=== PATIENT | female | born 2000 | race Caucasian/White ===

== ENCOUNTER → 2023-03-11 | Outpatient (CLI) | payer OTHER, SELFPAY ==
--- NOTE | 2023-03-11 08:27 | US_ITS ---
STUDY: FIRST TRIMESTER OBSTETRICAL ULTRASOUND REASON FOR EXAM: Female, 23 years old viability LMP: January 25, 2023. TECHNIQUE: Transvaginal TECHNICAL QUALITY: Adequate. PRIOR ULTRASOUND: None. FINDINGS: There is visualization of a single gestational sac in a normal intrauterine position. The mean sac diameter (MSD) measures 1.3 cm, indicating an estimated gestational age (EGA) of 6 weeks, 1 days. The gestational sac shape is within normal limits. There is a visualized yolk sac. The yolk sac measures 3.5 mm. The placenta is non-visualized. There is visualization of a live embryo. The crown-rump length (CRL) measures 3.2 mm, indicating an estimated gestational age (EGA) of 6 weeks, 1 days. There is demonstrated cardiac activity with a heart rate of 115 bpm. The estimated gestation age (EGA) by LMP is 6 weeks, 3 days. The estimated date of delivery (BRODIE) by LMP is November 01, 2023. The estimated gestation age (EGA) by US is 6 weeks, 1 days. The estimated date of delivery (BRODIE) by US is November 03, 2023. The uterus measures 8.9 cm x 5.7 cm x 4.9 cm. There is no demonstrated uterine fibroid. The cervix is closed. The right ovary measures 2.4 cm x 2.2 cm x 1.5 cm. There is no right ovarian cyst. There is no visualized right adnexal mass or complex lesion. The left ovary measures 1.2 cm x 1.4 cm x 1.9 cm. There is no left ovarian cyst. There is no visualized left adnexal mass or complex lesion. There is no fluid in the cul de sac. US/Transvaginal w/Preg US IMPRESSION: Single live intrauterine gestation with a mean gestational age of 6 weeks and 1 day. Electronically Signed: Vu Benjamin MD at 14:58 EST ,
[2023-03-11 10:34] LABS: Progesterone Level 25.47 ng/mL (See Comment)
[2023-03-11 11:07] LABS: hCG Titer Quant., Serum 11178 mIU/mL (1-3)
== END | disposition home or self-care (01) ==
PROVIDERS: Nurse Practitioner Women's Health; Referring Provider Registered Nurse; Visit Provider Registered Nurse
DX: O09.291 Supervision of pregnancy with other poor reproductive or obstetric history, first trimester (principal); Z3A.01 Less than 8 weeks gestation of pregnancy
CPT/HCPCS: 36415; 76817; 84144; 84702

== ENCOUNTER → 2023-03-28 | Outpatient (CLI) | payer OTHER, SELFPAY ==
[2023-03-28 13:57] LABS: Absolute Lymphocyte Count 1.81 X10^3/uL (0.83-4.51); Absolute Neutrophil Count 8.3 X10^3/uL (2.0-7.7); Basophil# 0.05 X10^3/uL; Basophil% 0.5 % (0-1); Eosinophil# 0.06 X10^3/uL; Eosinophils% 0.6 % (0-5); Hematocrit 39.6 % (37-47); Hemoglobin 13.4 g/dL (12.0-15.0); Lymphocyte # 1.81 X10^3/ul (0.83-4.51); Lymphocyte % 16.9 % (19-41); Mean Corp Hgb Conc 33.8 g/dL (32-36); Mean Corpuscular Hgb 28.7 pg (27.0-32.0); Mean Corpuscular Volume 84.8 fL (81-99); Mean Platelet Vol. 10.4 fl (6.2-12.0); Monocyte# 0.43 X10^3/uL; NRBC Flagged by Analyzer 0 % (0-5); Neutrophil # 8.29 X10^3/uL (2.7-7.7); Neutrophil % 77.6 % (47-70); Platelet Count 234 K/mm3 (150-450); RBC Distribution Width CV 11.8 % (11.6-14.6); RBC Distribution Width SD 36.1 fl (35.1-43.9); Red Blood Count 4.67 M/mm3 (4.2-5.4); White Blood Count 10.7 K/mm3 (4.4-11.0)
[2023-03-28 14:16] LABS: NATERA MAILED SPECIMEN
[2023-03-28 14:59] LABS: hCG Titer Quant., Serum 26855 mIU/mL (1-3)
[2023-04-02 10:09] LABS: Anti-Cardiolipin Ab, IgA, Qn < 9 APL U/mL (0-11); Anti-Cardiolipin Ab, IgG, Qn < 9 GPL U/mL (0-14); Anti-Cardiolipin Ab, IgM, Qn < 9 MPL U/mL (0-12); Beta-2-Glycoprotein I IgA <9 (0-25); Beta-2-Glycoprotein I IgG 20 (0-20); Beta-2-Glycoprotein I IgM <9 (0-32); Dilute Prothrombin Time (dPT) 47.2 sec (0.0-47.6); Dilute Russell Viper Venom 35.5 sec (0.0-47.0); Interpretation Comment: (.); PTT-LA 35.6 sec (0.0-43.5); dPT Confirm Ratio 1.01 Ratio (0.00-1.34)
== END | disposition home or self-care (01) ==
LOC: LAB 12:52
PROVIDERS: PCP Physician Assistant; Referring Provider Registered Nurse; Visit Provider Registered Nurse
DX: N96 Recurrent pregnancy loss (principal)
CPT/HCPCS: 36415; 84702; 85025; 86146; 86147; 86850; 86900; 86901

== ENCOUNTER 2023-04-01 14:09 | Day surgery (SDC) | payer SELFPAY, OTHER ==
--- NOTE | 2023-04-01 10:48 | PCM.HP.BLA ---
History and Physical Date of Admission: 04/01/23 Vital Signs 03/28/2311:22 Height 5 ft 4 in Weight: 140 lb BMI 24.0 BP 118/84 H Intake Visit Reasons: New OB, LMP Chief Complaint: NOB Deputy Fire Chief Required: No Is patient in pain?: No Allergies No Known Allergies Allergy (Unverified 03/28/23 11:21) Medications progesterone micronized 200 mg capsule 400 mg (2 x 200 mg) vaginal .2xday 30 days #120 caps 03/12/23 [Rx Confirmed 03/18/23] misoprostol 200 mcg tablet (Cytotec) 200 mcg PO QPCHS #4 tabs 03/28/23 [Rx Confirmed 03/28/23] Last Menstrual Period: 01/25/23 Zika: Zika virus screening: Negative : No PFSH PFSH Medical History History of miscarriage, currently Social History adopted: No household members: spouse current occupational status: employed current occupation: [employer] current occupational exposures/hazards: No pets and animals: Yes pets and animals: dog(s) history of recent travel: Yes (- October) out of state: No out of country: Yes sexually active: Yes Smoking Status: Never smoker alcohol intake: never substance use type: does not use well-balanced diet: about half the time caffeine: No eating out: rarely or never during the past year weight has: remained stable what type of physical activity do you participate in: none bradley/samaritan: Confucianist seatbelt use: sometimes do you feel safe at home: Yes additional social history: Frandy- Pepe History 2 Elective abortions Hx Para 0 Spontaneous abortions 1 Hx # Term Pregnancies Ectopic pregnancies Hx # Pregnancies Multiple births # of living children 0 Past Pregnancies Del. Date Name GA/Weeks Outcome Route Bth Weight Gen Labor Lgth Anesthesia Del Locatn Provider FOB Unknown October 2022 miscarriage 9 wks HPI New OB, LMP Details: ALE SOLIS is a 23 year old who presents for New OB visit. OB Visit BRODIE Calculator Estimated Delivery Date Method Current WG Current Estimate 11/01/23 LMP (Certain) 8w 6d Comments: HIV: Urine Culture: Sequential Screen: NIPT Screen: Estimated Due Date: 11/01/23 Initial Weight: Not Recorded Date <del>?</del> EGA Weight BP Urine Prot <del>?</del> Glucose FHR FuHt Pres Dilation <del>?</del> Effaced St Visit Note 03/28/23<del>?</del> 8w 6d 140 lb 118/84 <del>?</del> <del>?</del> no heart tones, medical and surgical options reviewed by SM and self. pt opted to medication management. cytotec sent to pharmacy. f/u ultrasound in 1 week. understands surgical intervention may still be required. Menstrual History Last Menstrual Period: 01/25/23 Antepartum Record Genetic Screening: Congenital Heart Defect: Other, Neural Tube Defect: Other, Hemoglobinopathy Or Carrier: Other, Cystic Fibrosis: Other, Chromosome Abnormality: Other, Joshua-Sachs: Other, Hemophilia: Other, Intellectual Disability/Autism: Other, Recurrent Loss/Stillbirth: Other, Other Structural Defect: Other, Other Genetic Disease: Other and Maternal Metabolic Disorder: Other Infection History: Live with someone with TB or Exposed to TB: No, Patient or Partner has history of Genital Herpes: No, Rash or Viral illness since last mentrual period: No, Prior GBS-Infected child: No, History of STD: No, HIV Infection: No, History of Hepatitis: No, Recent travel outside of [place]: Yes ([place]), Concern for hepatitis exposure: No, Varicella immune: Yes (IMMUNE) and Covid Vaccinated: No ROS Const Reports system reviewed and no additional complaints, except as documented Card Reports system reviewed and no additional complaints, except as documented Resp Reports system reviewed and no additional complaints, except as documented GI Reports system reviewed and no additional complaints, except as documented, Reports nausea Reports system reviewed and no additional complaints, except as documented Musc Reports system reviewed and no additional complaints, except as documented all other systems reviewed and negative Exam Const General: cooperative and comfortable Neck Neck: normal visual inspection Thyroid: thyroid normal Chest Chest palpation & inspection: normal inspection of the chest Breast inspection: normal inspection of the breasts and normal inspection of the axillae Resp Effort & Inspection: normal respiratory effort, able to speak in complete sentences and symmetric chest movement GI Inspection: normal to inspection Palpation: soft External Female Exam: normal external appearance and normal appearance of the urethra Urethra: normal appearance of the urethra Speculum Exam - Vagina: normal appearance of the vagina Speculum Exam - Cervix: normal appearance of the cervix Bimanual Exam- Vagina & Uterus: uterine size normal (consistent with dates of , no FHR) OB/External & Speculum: no bleeding Skin General: rashes and/or lesions noted Neuro General: patient alert, patient awake and patient oriented x3 Psych Appearance: grossly normal and well kempt Coding Level of Care Code Off vis,est,level 4 Diagnoses Missed with demise before 20 completed weeks of gestation O02.1 History of recurrent miscarriages N96 Assessment and Plan Assessment and Plan (1) Missed with demise before 20 completed weeks of gestation: Status: Acute Comment: medication management after r/b/a discussed. bleeding parameters reviewed f/u ultrasound and visit in 1 week (2) History of recurrent miscarriages: Status: Acute Comment: APL screening genetic carrier screening if both negative is considering hsg to rule out uterine abnormalities. would use progesterone with positive test. recommend waiting at least 3 months prior to conceiving. Orders: patient decided now to proceed with suction d and c. After discussing the patient's diagnosis and treatment plan options, patient wishes to proceed with surgical management. I have discussed with the patient the risks, benefits, and alternatives of the procedure which include but are not limited to risks of anesthesia, bleeding, infection, possible damage to bowel, bladder, or surrounding vasculature which could lead to additional surgery to evaluate any complications. Patient agrees to procedure and wishes to proceed. ACOG/uptodate references given for additional information regarding procedure.
[2023-04-01 14:56] VITALS: BP 126/81; PULSE 90; RESP 16; TEMP 36.2; O2SAT 100; BMI 23.8
[2023-04-01] MEDS: Lactated Ringers 1,000 ML 15 ML IV (15:00)
[2023-04-01] MEDS: Doxycycline 100 MG CAPSULE PO (15:00)
[2023-04-01 15:10] LABS: Hematocrit 40.2 % (37-47); Mean Corp Hgb Conc 34.8 g/dL (32-36); Mean Corpuscular Hgb 29.2 pg (27.0-32.0); Mean Corpuscular Volume 83.8 fL (81-99); Mean Platelet Vol. 10.2 fl (6.2-12.0); Platelet Count 246 K/mm3 (150-450); RBC Distribution Width CV 11.9 % (11.6-14.6); White Blood Count 9.2 K/mm3 (4.4-11.0)
--- NOTE | 2023-04-01 15:50 | POC_PTH ---
PATIENT: ALE SOLIS LOC: [facility] [place] U#:[id number] AGE/SX: 23/F ROOM: RE04/01/[address]: Dr. Lani Doherty MD : 2000 BED: DIS: 04/01/2023 SPEC #: [id number] RECD: 04/02/23 08:01 STATUS: NIECY DEBBIE #: [id number] EMMA: 04/01/23 15:[address]: Lani Doherty DEPT: SURGICAL PATHOLOGY RECD BY: Shefali Lara ENTERED: 04/02/23 08:01 SP TYPE: PROD CONC OTHR DR: YUDI Nath Tissues: Product of conception, NOS Procedures: Surgery Specimen Level IV HEADER OPERATION: Suction dilation and curettage PRE-OP DIAGNOSIS: Missed with demise before 20 completed weeks of gestation TISSUE SUBMITTED: Products of conception MICROSCOPIC DIAGNOSIS Products of conception, dilation and curettage: [place]id[place], gestational endometrium and immature chorionic villi (products of conception), clinically missed with demise. See comment. MARCO A:jorden 04/03/2023 COMMENT Focal minimal hydropic are noted. Significant trophoblastic hyperplasia is not seen. Correlation with clinical findings and appropriate follow up are necessary. MICROSCOPIC DESCRIPTION Slides are reviewed. GROSS DESCRIPTION Received in fixative is one container labeled with the patient's name and designated products of conception. The specimen consists of multiple irregular fragments of pitts tissue that in aggregate measure 7.0 x 5.0 x 0.3 cm. parts are not grossly recognized. Cosmetician portions are submitted in one cassette. / AM:jorden 04/02/2023 TC:5 CPT: 71475
[2023-04-01] MEDS: Lidocaine 1% (20 ml mdv) 20 ML Vial (16:48)
--- NOTE | 2023-04-01 17:02 | PCM.OPRPT ---
Problems Associated Problem List Diagnoses (1) History of recurrent miscarriages: (2) Missed with demise before 20 completed weeks of gestation: (3) H/O dilation and curettage: Report of Operation Date of Procedure: 04/01/23 Pre-Operative Diagnosis: see problem list Post-Operative Diagnosis: same Surgery/Procedure Performed:: Suction dilation and curettage Description of Surgical Findings:: no FHT present, Nonviable 8 weeks Surgeon: Lani Doherty parks recreation coordinator: None Type of Anesthesia: Local MAC Special Medications: none Specimen's removed: POC Drains: none Estimated Blood Loss (mL): 50 Fluids Replaced: crystalloid Description of Procedure: Patient was taken to the operating room and placed under MAC local anesthesia. She was prepped and draped in the normal sterile fashion the dorsal lithotomy position. Bladder was drained of clear urine and anterior lip of the cervix was grasped and the uterus sounded to 8 cm. Cervix was progressively dilated to allow passage of a 8mm suction curette. Progressive passes were made removing the retained products of conception without complication. Sharp curettage confirmed complete removal of the retained products. All instruments were removed from the vagina and excellent hemostasis was noted and the patient was taken to recovery in stable condition. Grafts/Implants Used: none Complications none Admit VTE Documentation VTE Present on Admission: No VTE Mechan Device Prophylaxis: SCD's Procedures Urinary/Genital 52xxx-59xxx: [id number] Trmt of incomplete Ab, any TM
[2023-04-01 17:05] VITALS: BP 101/61; BP 126/81; PULSE 78; RESP 16; TEMP 36.8; O2SAT 98
--- NOTE | 2023-04-01 17:09 | PCM.DC ---
Discharge Instructions Diet Discharge Diet: No restrictions Activity Discharge Activity: Return to Normal Activity, May Shower and May Take a Tub Bath (after 1 week) May resume sexual activity in: 1-2 weeks Weight Bearing Status: Weight bearing as tolerated Lifting Restrictions: none Dressing / Incision Call your doctor if you observe: Fever of 101 or Higher, Using more than 1 pad per hour, Shortness of breath and Uncontrolled pain Follow Up Care Please Follow Up With: Lani Doherty MD When: Call [phone] to schedule appointment. Test Results: Test results from this visit will be discussed in further detail at your follow-up appointment, if applicable. Discharge Plan Admission Attending Provider: Lani Doherty Primary Care Provider: Jessica Grossman Discharge Orders/Prescriptions Prescriptions: No Action NK Other Ambulatory Orders: CBC-Complete Blood Cnt No Diff (Routine) Timeframe: [id number] Facility: [facility] - Location: Laboratory Ordered By: Dr. Lani Doherty Type & Screen - PAT ONLY (Routine) Timeframe: [id number] Facility: [facility] - Location: Laboratory Ordered By: Dr. Lani Doherty Referrals / Follow Up: Jessica Grossman PA [Primary Care Provider] - Disposition Disposition (needs filled in before D/C Order can be placed): Home, Self Care
[2023-04-01 17:10] VITALS: BP 103/71; BP 126/81; PULSE 94; RESP 16; O2SAT 99
[2023-04-01 17:14] VITALS: BP 108/71; BP 126/81; PULSE 96; RESP 16; O2SAT 99
[2023-04-01 17:20] VITALS: BP 114/71; BP 126/81; PULSE 95; RESP 16; TEMP 37.2; O2SAT 100
[2023-04-01 18:18] VITALS: BP 126/81
== END 2023-04-01 18:18 | disposition home or self-care (01) ==
LOC: SDC 14:11 → AC 14:12
PROVIDERS: PCP Physician Assistant; Referring Provider Obstetrics & Gynecology; Visit Provider Obstetrics & Gynecology
PROC: (CPT 59820; principal; 2023-04-01 15:35)
DX: O02.1 Missed abortion (principal)
CPT/HCPCS: 59820; 01965; 85027; 86850; 86900; 86901; 88305; J7120; J2405

== ENCOUNTER → 2023-04-11 | Outpatient (CLI) | payer OTHER, SELFPAY ==
[2023-04-11 16:10] LABS: Hematocrit 37.3 % (37-47); Hemoglobin 12.5 g/dL (12.0-15.0); Mean Corp Hgb Conc 33.5 g/dL (32-36); Mean Corpuscular Hgb 28.6 pg (27.0-32.0); Mean Corpuscular Volume 85.4 fL (81-99); Mean Platelet Vol. 10.3 fl (6.2-12.0); Platelet Count 271 K/mm3 (150-450); RBC Distribution Width CV 11.9 % (11.6-14.6); RBC Distribution Width SD 36.9 fl (35.1-43.9); Red Blood Count 4.37 M/mm3 (4.2-5.4); White Blood Count 6.9 K/mm3 (4.4-11.0)
[2023-04-11 16:43] LABS: hCG Titer Quant., Serum 250 mIU/mL (1-3)
== END | disposition home or self-care (01) ==
LOC: LAB 15:35
PROVIDERS: PCP Physician Assistant; Referring Provider Obstetrics & Gynecology; Visit Provider Obstetrics & Gynecology
DX: Z34.90 Encounter for supervision of normal pregnancy, unspecified, unspecified trimester (principal)
CPT/HCPCS: 36415; 84702; 85027

== ENCOUNTER → 2023-09-05 | Outpatient (CLI) | payer OTHER, SELFPAY ==
[2023-09-08 20:08] LABS: Chlamydia By Nucleic Acid AMP Negative (Negative); Gonococcus By Nucleic Acid AMP Negative (Negative)
[2023-09-10 19:52] LABS: HPV Reflexed? NOT INDICATED
== END | disposition home or self-care (01) ==
LOC: LABSPEC 16:47
PROVIDERS: PCP Physician Assistant; Referring Provider Registered Nurse; Visit Provider Registered Nurse
DX: O09.90 Supervision of high risk pregnancy, unspecified, unspecified trimester (principal); Z3A.00 Weeks of gestation of pregnancy not specified
CPT/HCPCS: 87086; 87088; 87491; 87591; 88175; G0145

== ENCOUNTER → 2023-10-01 | Outpatient (CLI) | payer OTHER, SELFPAY ==
[2023-10-01 12:30] LABS: Absolute Lymphocyte Count 1.39 X10^3/uL (0.83-4.51); Absolute Neutrophil Count 9.7 X10^3/uL (2.0-7.7); Basophil# 0.03 X10^3/uL; Basophil% 0.3 % (0-1); Eosinophil# 0.05 X10^3/uL; Eosinophils% 0.4 % (0-5); Hematocrit 37.7 % (37-47); Hemoglobin 13.3 g/dL (12.0-15.0); Lymphocyte # 1.39 X10^3/ul (0.83-4.51); Mean Corp Hgb Conc 35.3 g/dL (32-36); Mean Corpuscular Hgb 29.9 pg (27.0-32.0); Mean Corpuscular Volume 84.7 fL (81-99); Mean Platelet Vol. 10.3 fl (6.2-12.0); Monocyte# 0.41 X10^3/uL; Monocyte% 3.5 % (0-10); NRBC Flagged by Analyzer 0 % (0-5); Neutrophil # 9.66 X10^3/uL (2.7-7.7); Neutrophil % 83.5 % (47-70); Platelet Count 225 K/mm3 (150-450); RBC Distribution Width CV 13.2 % (11.6-14.6); Red Blood Count 4.45 M/mm3 (4.2-5.4); White Blood Count 11.6 K/mm3 (4.4-11.0)
[2023-10-01 13:59] LABS: HIV - WCH Non-Reactive (Nonreactive); Hepatitis B Surface Antigen Non-Reactive (Nonreactive); Hepatitis C Antibody Non-Reactive (Nonreactive); Rubella IgG Non-Reactive (Nonreactive); Syphilis Antibodies Non-reactive
== END | disposition home or self-care (01) ==
LOC: LAB 11:38
PROVIDERS: Registered Nurse; PCP Physician Assistant; Referring Provider Obstetrics & Gynecology; Visit Provider Obstetrics & Gynecology
DX: O09.90 Supervision of high risk pregnancy, unspecified, unspecified trimester (principal); Z3A.00 Weeks of gestation of pregnancy not specified
CPT/HCPCS: 36415; 85025; 86703; 86762; 86780; 86803; 86850; 86900; 86901; 87340

== ENCOUNTER → 2023-11-24 | Outpatient (CLI) | payer SELFPAY, OTHER ==
--- NOTE | 2023-11-24 12:05 | US_ITS ---
STUDY: SECOND AND THIRD TRIMESTER OBSTETRICAL ULTRASOUND REASON FOR EXAM: Female, 23 years old anatomy-TWINS -- Please determine chorionicity LMP: TECHNIQUE: TECHNICAL QUALITY: Adequate. PRIOR ULTRASOUND: None. FINDINGS: There is a single intrauterine fetus. The fetus is in a cephalic presentation. There is demonstrated cardiac activity with a heart rate of bpm. There is a normal amniotic fluid volume. The largest amniotic fluid pocket measures cm. The amniotic fluid index (OTIS) is cm. The placenta is There are Grade 0 placental changes. The cervix measures in length. The bilateral adnexal regions are normal. BIOMETRY: BPD: : weeks, days HC: : weeks, days AC: : weeks, days FL: : weeks, days CI: FL/BPD: FL/HC: FL/AC: HC/AC: age by current US: weeks, days. BRODIE by current US: . Estimated weight: grams, +/- grams, %. age by prior US: weeks, days. BRODIE by prior US: . Age by LMP: weeks, days. BRODIE by LMP: . ANATOMY: Gender: Cranium: Normal lateral ventricles. Normal choroid plexus. Normal cerebellum. Normal cisterna magna. Normal face, nose and lips. Chest: Normal 4-chamber heart. Abdomen/Pelvis: Normal diaphragm. Normal stomach. Normal abdominal wall. Normal cord insertion. Normal 3 vessel cord. Normal kidneys. Normal bladder. Spine: Normal cervical spine. Normal thoracic spine. Normal lumbar spine. Normal sacrum. Extremities: Normal bilateral upper extremities. Normal bilateral lower extremities. IMPRESSION: Electronically Signed: Vu Benjamin MD at 15:27 EDT , STUDY: SECOND AND THIRD TRIMESTER OBSTETRICAL ULTRASOUND - TWIN REASON FOR EXAM: Female, 23 years old. LMP: anatomy-TWINS -- Please determine chorionicity TECHNIQUE: Transabdominal TECHNICAL QUALITY: Adequate. COMPARISON: None. FINDINGS: There are two intrauterine fetuses. There is a single identified placenta, without a ?twin peak? sign, indicating a probable monochorionic . The amniotic membrane cannot be visualized. There is a normal amniotic fluid volume within each amniotic sac. The uterine wall is normal. There is a competent closed cervical os. The cervix measures 3.9 cm in length. The bilateral adnexal regions are normal. Fetus A demonstrates male external genitalia. Fetus A demonstrates cardiac activity with a heart rate of 157 bpm. Fetus ?A? is in a breech presentation. Fetus B demonstrates male external genitalia. Fetus B demonstrates cardiac activity with a heart rate of 150 bpm. Fetus B is in a cephalic presentation. FETUS A BIOMETRY: BPD: 4.7 cm: 20 weeks, 0 days HC: 17.6 on: 20 weeks, 0 days AC: 14.9 cm: 20 weeks, 1 days FL: 3.2 cm: 20 weeks, 0 days CI: 75.8% FL/BPD: 69.2% FL/HC: FL/AC: 21.7% HC/AC: 1. age by current US: 20 weeks, 1 days. BRODIE by current US: April 11, 2024. Estimated weight: 332 grams, +/- 50 grams, 27.6 %. Age by LMP: 20 weeks, 3 days. BRODIE by LMP: April 09, 2024. FETUS B BIOMETRY: BPD: 4.7 cm: 20 weeks, 1 days HC: 17.5 cm: 20 weeks, 0 days AC: 15.1 cm: 20 weeks, 2 days FL: 3.1 cm: 19 weeks, 4 days CI: 76.5% FL/BPD: 66.2% FL/HC: FL/AC: 20.5% HC/AC: 1. age by current US: 20 weeks, 0 days. BRODIE by current US: April 12, 2024. Estimated weight: 326 grams, +/- 49 grams, 24 %. Age by LMP: 20 weeks, 3 days. BRODIE by LMP: April 09, 2024. FETUS A ANATOMY: Cranium: Normal lateral ventricles. Normal choroid plexus. Normal cerebellum. Normal cisterna magna. Normal face, nose and lips. Chest: Normal 4-chamber heart. Abdomen/Pelvis: Normal diaphragm. Normal stomach. Normal abdominal wall. Normal cord insertion. Normal 3 vessel cord. Normal kidneys. Normal bladder. Spine: Normal cervical spine. Normal thoracic spine. Normal lumbar spine. Normal sacrum. Extremities: Normal bilateral upper extremities. Normal bilateral lower extremities. FETUS B ANATOMY: Cranium: Normal lateral ventricles. Normal choroid plexus. Normal cerebellum. Normal cisterna magna. Normal face, nose and lips. Chest: Normal 4-chamber heart. Abdomen/Pelvis: Normal diaphragm. Normal stomach. Normal abdominal wall. Normal cord insertion. Normal 3 vessel cord. Normal kidneys. Normal bladder. Spine: Normal cervical spine. Normal thoracic spine. Normal lumbar spine. Normal sacrum. Extremities: Normal bilateral upper extremities. Normal bilateral lower extremities. IMPRESSION: Twin gestation as described above. Electronically Signed: Vu Benjamin MD at 15:23 EDT , STUDY: FIRST TRIMESTER OBSTETRICAL ULTRASOUND REASON FOR EXAM: Female, 23 years old anatomy-TWINS --cervical length. TECHNIQUE: Transvaginal TECHNICAL QUALITY: Adequate. PRIOR ULTRASOUND: None. FINDINGS: Cervical length measures 3.9 cm. US/OB Anatomy w/ Transvaginal IMPRESSION: Cervical length measures 3.9 cm. Electronically Signed: Vu Benjamin MD at 15:27 EDT ,
== END | disposition home or self-care (01) ==
LOC: OPUS 12:04 → US 12:05
PROVIDERS: PCP Physician Assistant; Referring Provider Obstetrics & Gynecology; Visit Provider Obstetrics & Gynecology
DX: O30.009 Twin pregnancy, unspecified number of placenta and unspecified number of amniotic sacs, unspecified trimester (principal); Z3A.00 Weeks of gestation of pregnancy not specified
CPT/HCPCS: 76805; 76810; 76817

== ENCOUNTER → 2024-01-26 | Outpatient (CLI) | payer OTHER, SELFPAY ==
[2024-01-26 09:18] LABS: Absolute Lymphocyte Count 1.37 X10^3/uL (0.83-4.51); Absolute Neutrophil Count 8.6 X10^3/uL (2.0-7.7); Basophil# 0.03 X10^3/uL; Basophil% 0.3 % (0-1); Eosinophil# 0.05 X10^3/uL; Eosinophils% 0.5 % (0-5); Hematocrit 35.3 % (37-47); Hemoglobin 11.5 g/dL (12.0-15.0); Lymphocyte # 1.37 X10^3/ul (0.83-4.51); Mean Corp Hgb Conc 32.6 g/dL (32-36); Mean Corpuscular Hgb 28.5 pg (27.0-32.0); Mean Corpuscular Volume 87.6 fL (81-99); Mean Platelet Vol. 10.8 fl (6.2-12.0); Monocyte# 0.39 X10^3/uL; Monocyte% 3.7 % (0-10); NRBC Flagged by Analyzer 0 % (0-5); Neutrophil # 8.61 X10^3/uL (2.7-7.7); Neutrophil % 81.6 % (47-70); Platelet Count 179 K/mm3 (150-450); RBC Distribution Width CV 12.1 % (11.6-14.6); RBC Distribution Width SD 38.6 fl (35.1-43.9); Red Blood Count 4.03 M/mm3 (4.2-5.4); White Blood Count 10.6 K/mm3 (4.4-11.0)
[2024-01-26 09:42] LABS: Glucose Challenge Gest 1H 50g 163 mg/dL (70-140)
[2024-01-26 10:10] LABS: HIV - WCH Non-Reactive (Nonreactive); Syphilis Antibodies Non-reactive
== END | disposition home or self-care (01) ==
LOC: LAB 08:24
PROVIDERS: PCP Physician Assistant; Referring Provider Obstetrics & Gynecology; Visit Provider Obstetrics & Gynecology
DX: O09.90 Supervision of high risk pregnancy, unspecified, unspecified trimester (principal); Z3A.00 Weeks of gestation of pregnancy not specified
CPT/HCPCS: 36415; 82950; 85025; 86703; 86780; 86850; 86900; 86901

== ENCOUNTER → 2024-01-28 | Outpatient (CLI) | payer OTHER, SELFPAY ==
[2024-01-28 07:34] LABS: Bedside Glucose 85 mg/dL (74-106)
[2024-01-28 08:04] LABS: Glucose GTT-Gestation. Fasting 95 mg/dL (<105)
[2024-01-28 08:39] LABS: Glucose GTT-Gestational 1 Hr 215 mg/dL (<190)
[2024-01-28 11:09] LABS: Glucose GTT-Gestational 2 Hr 185 mg/dL (<165)
[2024-01-28 11:26] LABS: Glucose GTT-Gestational 3 Hr 129 L (<145)
== END | disposition home or self-care (01) ==
LOC: LAB 06:50
PROVIDERS: PCP Physician Assistant; Referring Provider Obstetrics & Gynecology; Visit Provider Obstetrics & Gynecology
DX: Z13.1 Encounter for screening for diabetes mellitus (principal)
CPT/HCPCS: 36415; 82951; 82952; 82962

== ENCOUNTER → 2024-02-16 | Outpatient (CLI) | payer SELFPAY, OTHER ==
--- NOTE | 2024-02-16 12:20 | US_ITS ---
INDICATION: weekly bpp -- Twins EXAMINATION: Ultrasound US Biophysical Profile W/O Nonst TECHNIQUE: Transabdominal pelvic ultrasound was performed. COMPARISON: No relevant prior comparison study available LMP: 07/04/2027 Beta-hCG: Unknown. Provided EGA: None. FINDINGS: age by LMP: 32 weeks and 3 days. BRODIE by LMP is 04/09/2024 INTRAUTERINE GESTATION(s): Twin TWIN A: HEART MOTION is 139 bpm. AMNIOTIC FLUID INDEX (OTIS): Within normal limits but OTIS not measured, the largest pocket of fluid measures 6.2 cm. BIOPHYSICAL PROFILE (BPP): 12/03 -- Breathin/2. -- Movement: 2/2. -- Tone: 2/2. --OTIS: 2/2. PRESENTATION: Cephalic PLACENTA: Anterior grade 2. There is no placenta previa or abruption. CERVIX: The cervix is closed. TWIN B: HEART MOTION is 136 bpm. AMNIOTIC FLUID INDEX (OTIS): Within normal limits but the OTIS is not measured, the largest pocket of fluid measures 4.1 cm BIOPHYSICAL PROFILE (BPP): 12/03 -- Breathin/2. -- Movement: 2/2. -- Tone: 2/2. --OTIS: 2/2. PRESENTATION: Cephalic PLACENTA: Anterior grade 2. There is no placenta previa or abruption. CERVIX: The cervix is closed. MATERNAL OVARIES: No adnexal masses. FREE FLUID: None. US/Biophysical Prof W/O Non Stres IMPRESSION: Twin with normal biophysical profile score of 8 out of 8 for both fetuses. Electronically Signed: Dann Crespo MD at 11:42 EDT ,
== END | disposition home or self-care (01) ==
LOC: US 12:20
PROVIDERS: PCP Physician Assistant; Referring Provider Advanced Practice Midwife; Visit Provider Advanced Practice Midwife
DX: O24.419 Gestational diabetes mellitus in pregnancy, unspecified control (principal); O30.039 Twin pregnancy, monochorionic/diamniotic, unspecified trimester; Z3A.00 Weeks of gestation of pregnancy not specified
CPT/HCPCS: 76819

== ENCOUNTER → 2024-03-01 | Outpatient (CLI) | payer OTHER, SELFPAY ==
--- NOTE | 2024-03-01 11:50 | US_ITS ---
INDICATION: BIOPHYSICAL TWINS EXAMINATION: Ultrasound US Biophysical Profile W/O Nonst TECHNIQUE: Transabdominal pelvic ultrasound was performed. COMPARISON: Prior study dated: 02/16/2024 LMP: 07/04/2023 Beta-hCG: Unknown. Provided EGA: None. FINDINGS: INTRAUTERINE GESTATION(s): Twin ESTIMATED GESTATIONAL AGE: 34 weeks and 3 days by LMP. ESTIMATED DUE DATE (BRODIE): 04/09/2024 by LMP. TWIN A: HEART MOTION is 162 bpm. AMNIOTIC FLUID INDEX (OTIS): Within normal limits but the OTIS not measured. MVP: 5 cm BIOPHYSICAL PROFILE (BPP): 12/03 -- Breathin/2. -- Movement: 2/2. -- Tone: 2/2. --OTIS: 2/2. PRESENTATION: Cephalic. TWIN A: HEART MOTION is 167 bpm. AMNIOTIC FLUID INDEX (OTIS): Within normal limits but the OTIS not measured. MVP: 3.8 cm BIOPHYSICAL PROFILE (BPP): 12/03 -- Breathin/2. -- Movement: 2/2. -- Tone: 2/2. --OTIS: 2/2. PRESENTATION: Cephalic. PLACENTA: Anterior. There is no placenta previa or abruption. CERVIX: The cervix is closed. MATERNAL OVARIES: No adnexal masses. FREE FLUID: None. IMPRESSION: Normal biophysical profile of twin A and twin B. Electronically Signed: Dann Crespo MD at 13:30 EST , INDICATION: BIOPHYSICAL TWINS EXAMINATION: Ultrasound US Biophysical Profile W/O Nonst TECHNIQUE: Transabdominal pelvic ultrasound was performed. COMPARISON: Prior study dated: 02/16/2024 LMP: 07/04/2023 Beta-hCG: Unknown. Provided EGA: None. FINDINGS: INTRAUTERINE GESTATION(s): Twin ESTIMATED GESTATIONAL AGE: 34 weeks and 3 days by LMP. ESTIMATED DUE DATE (BRODIE): 04/09/2024 by LMP. TWIN A: HEART MOTION is 162 bpm. AMNIOTIC FLUID INDEX (OTIS): Within normal limits but the OTIS not measured. MVP: 5 cm BIOPHYSICAL PROFILE (BPP): 12/03 -- Breathin/2. -- Movement: 2/2. -- Tone: 2/2. --OTIS: 2/2. PRESENTATION: Cephalic. TWIN A: HEART MOTION is 167 bpm. AMNIOTIC FLUID INDEX (OTIS): Within normal limits but the OTIS not measured. MVP: 3.8 cm BIOPHYSICAL PROFILE (BPP): 12/03 -- Breathin/2. -- Movement: 2/2. -- Tone: 2/2. --OTIS: 2/2. PRESENTATION: Cephalic. PLACENTA: Anterior. There is no placenta previa or abruption. CERVIX: The cervix is closed. MATERNAL OVARIES: No adnexal masses. FREE FLUID: None. US/Biophysical Prof W/O Non Stres IMPRESSION: Normal biophysical profile of twin A and twin B. Electronically Signed: Dann Crespo MD at 13:31 EST ,
== END | disposition home or self-care (01) ==
LOC: US 11:30
PROVIDERS: PCP Physician Assistant; Referring Provider Advanced Practice Midwife; Visit Provider Advanced Practice Midwife
DX: O30.039 Twin pregnancy, monochorionic/diamniotic, unspecified trimester (principal); Z3A.00 Weeks of gestation of pregnancy not specified
CPT/HCPCS: 76819

== ENCOUNTER → 2024-03-08 | Outpatient (CLI) | payer SELFPAY, OTHER | END | disposition home or self-care (01) | PROVIDERS: PCP Physician Assistant; Referring Provider Obstetrics & Gynecology; Visit Provider Obstetrics & Gynecology | DX: O09.90 Supervision of high risk pregnancy, unspecified, unspecified trimester (principal); Z3A.00 Weeks of gestation of pregnancy not specified | CPT/HCPCS: 87081 ==

== ENCOUNTER 2024-03-18 07:13 | Inpatient (IN) | payer SELFPAY ==
[2024-03-18] VITALS (66 sets, daily range): BP systolic 117–140; BP diastolic 68–90; PULSE 78–134; RESP 16–18; TEMP 36.3–37.1; O2SAT 96–99; BMI 34.0
--- OUTSIDE RECORDS SUMMARY | 2024-03-18 07:13 | XMS RPT_ITS | CCD ---
Author Organization [facility] CliniSyny Care Team Providers Care Radius Grinder Name Role Phone NURIS, PRAKASH CNM Consulting Unavailable BRAEDEN, JASMIN COMMERCIAL ASSISTANT Primary Care Unavailable BRAEDEN, JASMIN COMMERCIAL ASSISTANT Attending Unavailable BRAEDEN, JASMIN COMMERCIAL ASSISTANT Admitting Unavailable PROVIDER, UNKNOWN Consulting Unavailable UPTAIN, CRYSTAL CNM Primary Care Unavailable UPTAIN, CRYSTAL CNM Admitting Unavailable UPTAIN, CRYSTAL CNM Consulting Unavailable UPTAIN, CRYSTAL CNM Attending Unavailable PROVIDER, UNKNOWN Consulting Unavailable PROVIDER, UNKNOWN Consulting Unavailable LAWLER, PRAKASH CNM Consulting Unavailable LAWLER, PRAKASH CNM Attending Unavailable LAWLER, PRAKASH CNM Admitting Unavailable LAWLER, PRAKASH CNM Primary Care Unavailable PROVIDER, UNKNOWN Consulting Unavailable LAWLER, PRAKASH CNM Consulting Unavailable MINI HOFF MD Primary Care Unavailab tutu HOFF, MINI WILKS Attending Unavailab le KAVYA, MINI WILKS Admitting Unavailab le PROVIDER, UNKNOWN Consulting Unavailable MINI HOFF MD Primary Care Unavailab tutu HOFF, MINI WILKS Attending Unavailab tutu HOFF, MINI WILKS Admitting Unavailab le LAWLER, PRAKASH CNM Consulting Unavailable PROVIDER, UNKNOWN Consulting Unavailable LAWLER, PRAKASH CNM Referring Unavailable LAWLER, PRAKASH CNM Consulting Unavailable BRAEDEN, JASMIN COMMERCIAL ASSISTANT Primary Care Unavailable BRAEDEN, JASMIN COMMERCIAL ASSISTANT Attending Unavailable BRAEDEN, JASMIN COMMERCIAL ASSISTANT Admitting Unavailable PROVIDER, UNKNOWN Consulting Unavailable LAWLER, PRAKASH CNM Consulting Unavailable LAWLER, PRAKASH CNM Attending Unavailable LAWLER, PRAKASH CNM Admitting Unavailable LAWLER, PRAKASH CNM Primary Care Unavailable PROVIDER, UNKNOWN Consulting Unavailable LAWLER, PRAKASH CNM Consulting Unavailable LAWLER, PRAKASH CNM Attending Unavailable LAWLER, PRAKASH CNM Admitting Unavailable LAWLER, PRAKASH CNM Primary Care Unavailable PROVIDER, UNKNOWN Consulting Unavailable Uptain CNM, Crystal K Unavailable Veronica Calderon LPN Unavailable Armida Goodman LPN Unavailable Unavailable Hernando Grossman PA-C Unavailable HERNANDO GROSSMAN Primary Care Unavailable DARA HILLS Attending Unavailab DARA Gann Referring Unavailab DARA Gann Attending Unavailab DARA Gann Referring Unavailab HERNANDO Peters Primary Care Unavailable DARA HILLS Attending Unavailab DARA Gann Referring Unavailab HERNANDO Peters Primary Care Unavailable DARA HILLS Referring Unavailab le DARA HILLS Attending Unavailab HERNANDO Petres Primary Care Unavailable HERNANDO GROSSMAN Primary Care Unavailable MAGALIS DAVIDSON Attending Unavailable DARA HILLS Referring Unavailab HERNANDO Peters Primary Care Unavailable MARILU PAEZ Attending Unavailable MARILU PAEZ Referring Unavailable HERNANDO GROSSMAN Primary Care Unavailable PADMINI FLOWERS Attending Unavailable DARA HILLS Referring Unavailab HERNANDO Peters Primary Care Unavailable PADMINI FLOWERS Attending Unavailable DARA HILLS Referring Unavailab le Medications Completed/Discontinued Medications Medication Drug Class(es) Dates Sig (Normalized) Sig (Original) azithromycin 250 mg oral tablet (10 sources) Macrolide Antimicrobial Start: 07-26-2017 End: 11-27-2017 Zithromax Z-Luis A 250 MG Oral Tablet ; 2 (two) Tablet today and then 1 tablet daily x 4 days for 0 days Quantity: 1 {Package} Refills: 0 Ordered: 27-Nov-2017 Yumiko TATTOO TECHNICIANTamar Martin Start: 26-Jul-2017 End: 27-Nov-2017 Status: Inactive miSOPROStol 0.2 mg oral tablet (10 sources) Prostaglandin E1 Analog Start: 11-27-2022 End: 11-28-2022 Cytotec 200 mcg tablet ; 2 (two) tablet under the tongue every 4 hours as needed for 1 days Quantity: 6 {Tablet} Refills: 0 Ordered: 27-Nov-2022 CHERRIE Flores Start: 27-Nov-2022 End: 28-Nov-2022 Status: Inactive Comments: Medication taken as needed. Comment on above: Medication taken as needed. oxyCODONE hydrochloride 5 mg oral tablet (10 sources) Opioid Agonist Start: 11-27-2022 End: 11-30-2022 take 1 tablet by mouth every six hours as needed for pain oxyCODONE 5 mg tablet ; 1 (one) tablet every 6 hours as needed for pain for 3 days Quantity: 3 {Tablet} Refills: 0 Ordered: 27-Nov-2022 CHERRIE Flores Mishel K Start: 27-Nov-2022 End: 30-Nov-2022 Status: Inactive Comments: Medication taken as needed. Comment on above: Medication taken as needed. Problems Active Problems Problem Classification Problem Date Documented Da te Episodic/Chronic Fever of unknown origin (10 sources) Fever; Translations: [Fever, unspecified] 07-26-2017 Episodic Other complications of (10 sources) Missed miscarriage; Translations: [Missed ] 11-23-2022 Episodic Spontaneous (20 sources) Miscarriage; Translations: [Complete or unspecified spontaneous without complication] 12-02-2022 Episodic Unclassified (10 sources) Number of Pregnancies 11-27-2022 Comment on above: 1. Past or Other Problems Problem Classification Problem Date Documented Date Episodic/Chronic Other screening for suspected conditions (not mental disorders or infectious disease) (3 sources) Encounter for observation for other suspected diseases and conditions ruled out; Translations: [Encounter for observation for other suspected diseases and conditions ruled out] Onset: 12-02-2022 Episodic Unclassified (10 sources) US for SAB - pt was seen 11/20/2022 for miscarriage around 9 weeks -- no rhogam needed and has negative blood type as well patient is here today for US to make sure everything has passed pt is still bleeding some, she is passing clotswas cramping but that stopped yesterday no fever or chillsshe is feeling OK today 11-27-2022 Unclassified (10 sources) visit (initial) - The patient suspects she is due to a positive home test and missed menses. Last menstrual period: 9 weeks ago. - (1) Parity - (0) Abortions - (0). The patient has no complaints. Vaginal discharge is described as scant. Vaginal bleeding is described as moderate (started yesterday). There have been no urinary problems. There have been no bowel problems. Contraceptive history includes none. There is no previous surgical history. Current medications include vitamins. Habits include caffeine use. 11-23-2022 Unclassified (10 sources) Cold Symptoms - Symptoms include sore throat (no longer has this), dry cough, fever (101), general malaise and headache. The onset was gradual 2 week(s) ago. The symptoms occur constantly (was better but started getting worse 3 days ago). The patient describes this as moderate in severity and worsening. The patient is not currently being treated for this problem. Note for Upper respiratory infection : No body aches. 07-26-2017 Results Test Name Value Interpretation Reference Range Facility Progress Noteon 01-12-2024 Reel Man Authentication Interface Message Text [facility]- MEDICINE CONSULT Referring/Requesting Provider: Dara Hills, * PCP: Hernando Grossman PA-C INDICATION FOR CONSULT: monochorionic diamniotic twin HISTORY OF PRESENT ILLNESS: Patient is a 23 y.o. at 27w3d who presents for consultation regarding monochorionic diamniotic twin . Consult requested to review recommend US surveillance. PT member of the [employer] and would like to choose testing that is financially responsible while protecting the health of her twins. She is accompanied by he mother. She feels well today. No OB complaints. Babies are moving well. OB History Para Term AB Living 3 0 2 SAB IAB Ectopic Multiple Live Births 2 # Outcome Date GA Lbr Juan/2nd Weight Sex Type Anes PTL Lv 3 Current 2 SAB 04/01/23 9w0d 1 11/2022 9w0d Obstetric Comments First miscarriage; baby stopped growing at 6 weeks Second miscarriage, baby stopped growing at 8 weeks. - pt had a D&C with second miscarriage Pt had some genetic testing with second loss and pt states this was not the cause of the loss There was talk of progesterone with this , but pt stated that she was on a natural progesterone and did well. Past Medical History: Diagnosis Date Asymptomatic human immunodeficiency virus (HIV) infection status Obesity Rh negative state in antepartum period Twin gestation in second trimester Past Surgical History: Procedure Laterality Date DILATION AND CURETTAGE OF UTERUS 03/2023 PERTINENT FAMILY HISTORY: Family History Problem Relation Age of Onset Graves' Disease Son diagnosed age 23 or 24 Seizure or epilepsy Other cause: from ; His mom had toxemia and knot in cord; ? insult- MEDS: Outpatient Medications Marked as Taking for the 01/12/24 encounter (Office Visit) with Padmini Flowers, DO Medication Sig Dispense Refill aspirin 81 MG chewable tablet Take 1 Tablet (81 mg) by mouth daily UNABLE TO FIND Taking 10 different herbals: Magnesium, iron..... not sure of the other ones but she said that she had her OB review them and stated that they were safe. Also taking some vitamins and calcium ALLERGY: No Known Allergies REVIEW OF SYSTEMS: ROS PHYSICAL EXAM: VITAL SIGNS: BP 117/80 Pulse 100 Resp 20 Ht (!) 154.9 cm Wt 77.6 kg (171 lb) LMP 07/04/2023 SpO2 99% BMI 32.31 kg/m Physical Exam AAOx3, NAD Resp effort normal Gravid IMAGING: See report LABS: No visits with results within 1 Week(s) from this visit. Latest known visit with results is: No results found for any previous visit. IMPRESSION AND RECOMMENDATIONS: Carlyn is a 23 y.o. 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 - Duplicated renal arteries are a common variant of the renal arteries. They are present in ~25% of the population and bilateral in ~10%. - Duplicated renal arteries are not associated with risk nor health consequence for the individual. - In the rare case of donor transplantation or renal artery embolization, accurate identification of the renal arteries is importance for surgical planning. - Urinary Tract Dilation A1 - low risk for uropathies (16-27 weeks AP RPD 4 to 7 mm or >= 28 weeks AP RPD 7 to 10 mm, central or no calyceal dilation, normal parenchyma, ureters and bladder). Recommendations: 1. Reassess UTD after 32 weeks. 2. Please notify the decommissioning well site manager of the diagnosis of UTD. Generally, two ultrasounds are recommended. The first between 48 hours and 1 month of age and the second follow-up ultrasound 1-6 month later. It is undetermined if antibiotic prophylaxis or circumcision in males decrease the risk for urinary tract infection and are at the discretion of the providers. 3. Additional follow-up as clinically indicated. Monochorionic diamniotic twin , antepartum 12/11/2023 Carlyn was seen for consultation regarding monochorionic diamniotic twin . Multifetal gestations are associated with an increased risk of maternal, and infant morbidity and mortality compared to mascorro gestations. Maternal risks include: hyperemesis, gestational diabetes, hypertension, anemia, hemorrhage, delivery and depression. risks include: twin-twin transfusion syndrome, twin anemia/polycythemia sequence, congenital anomalies, , growth restriction and stillbirth with possible sequelae to a surviving co-twin. risks are largely related to prematurity and include: intraventricular hemorrhage, periventricular leukomalacia, cerebral palsy and . Due to these incr (more content not included)... Normal [facility] PREG SERUM QUANTon 4 HCG QUANTITATIVE 55225 mIU/mL High 0 - 6 [facility] Comment on above: Result Comment: Rosalina grigsby Range: Male: <5 Female: Non: <5 1 - 7 days : 5 - 50 1 - 2 weeks: 50 - 500 2 - 3 weeks: 100 - 5000 3 - 4 weeks: 500 - 10,000 4 - 5 weeks: 1000 - 50,000 5 - 6 weeks: 10,000 - 100,000 6 - 8 weeks: 15,000 - 200,000 2 - 3 months: 10,000 - 100,000 2ND TRIMESTER 3000-50,000 3RD TRIMESTER 1000-50,000 Performed By: #### 2 [id number] #### [facility],[address] [place] [address] PREG SERUM QUANTon 4 HCG QUANTITATIVE 940 mIU/mL High 0 - 6 [facility] Comment on above: Result Comment: Rosalina grigsby Range: Male: <5 Female: Non: <5 1 - 7 days : 5 - 50 1 - 2 weeks: 50 - 500 2 - 3 weeks: 100 - 5000 3 - 4 weeks: 500 - 10,000 4 - 5 weeks: 1000 - 50,000 5 - 6 weeks: 10,000 - 100,000 6 - 8 weeks: 15,000 - 200,000 2 - 3 months: 10,000 - 100,000 2ND TRIMESTER 3000-50,000 3RD TRIMESTER 1000-50,000 Performed By: #### 2 [id number] #### [facility],[address] [place], [place] [id number] PREG SERUM QUANTon 4 HCG QUANTITATIVE 340 mIU/mL High 0 - 6 [facility] Comment on above: Result Comment: Rosalina grigsby Range: Male: <5 Female: Non: <5 1 - 7 days : 5 - 50 1 - 2 weeks: 50 - 500 2 - 3 weeks: 100 - 5000 3 - 4 weeks: 500 - 10,000 4 - 5 weeks: 1000 - 50,000 5 - 6 weeks: 10,000 - 100,000 6 - 8 weeks: 15,000 - 200,000 2 - 3 months: 10,000 - 100,000 2ND TRIMESTER 3000-50,000 3RD TRIMESTER 1000-50,000 Performed By: #### 2 [id number] #### [facility],[address] [place] [address] PREG SERUM QUANTon 3 HCG QUANTITATIVE 96021 mIU/mL High 0 - 6 [facility] Comment on above: Result Comment: Rosalina grigsby Range: Male: <5 Female: Non: <5 1 - 7 days : 5 - 50 1 - 2 weeks: 50 - 500 2 - 3 weeks: 100 - 5000 3 - 4 weeks: 500 - 10,000 4 - 5 weeks: 1000 - 50,000 5 - 6 weeks: 10,000 - 100,000 6 - 8 weeks: 15,000 - 200,000 2 - 3 months: 10,000 - 100,000 2ND TRIMESTER 3000-50,000 3RD TRIMESTER 1000-50,000 Performed By: #### 2 [id number] #### [facility],[address] [place] [address] PREG SERUM QUANTon 3 HCG QUANTITATIVE 96134 mIU/mL High 0 - 6 [facility] Comment on above: Result Comment: Rosalina grigsby Range: Male: <5 Female: Non: <5 1 - 7 days : 5 - 50 1 - 2 weeks: 50 - 500 2 - 3 weeks: 100 - 5000 3 - 4 weeks: 500 - 10,000 4 - 5 weeks: 1000 - 50,000 5 - 6 weeks: 10,000 - 100,000 6 - 8 weeks: 15,000 - 200,000 2 - 3 months: 10,000 - 100,000 2ND TRIMESTER 3000-50,000 3RD TRIMESTER 1000-50,000 Performed By: #### 2 [id number] #### [address] [address] PREG SERUM QUANTon 3 HCG QUANTITATIVE 9000 mIU/mL High 0 - 6 [facility] Comment on above: Result Comment: Refe rence Range: Male: <5 Female: Non: <5 1 - 7 days : 5 - 50 1 - 2 weeks: 50 - 500 2 - 3 weeks: 100 - 5000 3 - 4 weeks: 500 - 10,000 4 - 5 weeks: 1000 - 50,000 5 - 6 weeks: 10,000 - 100,000 6 - 8 weeks: 15,000 - 200,000 2 - 3 months: 10,000 - 100,000 2ND TRIMESTER 3000-50,000 3RD TRIMESTER 1000-50,000 Performed By: #### 2 [id number] #### [address] [address] [place] PELVICon 12-02-2022 [place] [id number] Patient: CARLYN SOLIS Phone#: : [phone] Age: 22 Gender: F Pt. Type: Out Account: [id number] Location: Ordering: FromUsTAIN Exam Date: 12/02/2022/10:15 Family Phys: Charge Code: [id number] Physician: [place] Order #: [id number] Dose#: PROCEDURE: PELVIC ULTRASOUND, TRANSABDOMINAL COMPARISON: None. INDICATIONS: Retained products TECHNIQUE: Pelvic ultrasound was performed in the usual manner. FINDINGS: UTERUS: Size is 7.4 x 3.94.3 cm with unremarkable appearance. Endometrial thickness is 5.0 mm. There is no evidence of retained products of conception. ADNEXAE: Normal bilateral appearance with no significant masses. Each ovary is normal in size for a patient of this age. CUL-DE-SAC: Normal. No fluid or mass. OTHER: Negative. CONCLUSION: 1. Normal pelvic ultrasound. 2. There is no evidence of retained products of conception. Dictated by: Vonnie Solomon MD on 12/02/2022 at 11:14 Approved by: Vonnie Solomon MD on 12/02/2022 at 11:17 Normal [facility] Laboratory - Chemistry and C hemistry - challengeon 11-20-2022 Bilirubin Ql (U) Negative Normal [facility] [employer]. Ketones Ql (U) Negative Normal [facility] [employer]. pH (U) 6.0 [pH] Normal [employer]. Specific gravity (U) [Rel density] 1.025 Normal [employer]. Urobilinogen Qn (U) 0.2 mg/dL Normal [facility] [employer]. Laboratory - Hematology and Cell countson 11-20-2022 Hemoglobin Ql (U) trace- intact Normal [facility].; [employer]. Laboratory - Specimen inform ationon 11-20-2022 Appearance (U) clear Normal [facility].; [employer]. Color (U) yellow Normal [employer].; [employer]. Laboratory - Urinalysison Glucose Test strip (U) [Mass/Vol] Negative Normal [employer]. Leukocyte esterase Test strip Ql (U) Negative Normal [employer].; [employer]. Nitrite Ql (U) Negative Normal [facility] [employer]. Protein Ql (U) Negative Normal [facility] [employer]. Laboratory - Microbiology an d Antimicrobial susceptibilityon 07-26-2017 FLUAV Ag IA Ql (Throat) Negative Normal [facility] [place] [facility], [facility] No Panel Informationon 07-26 MONOSPOT TEST (IN HOUSE) Negative Normal [facility], [facility] Vital Signs Date Time Vital Sign Value Performing Clinician Facility 11-27-2022 09:50-0400 Body height 154.94 cm Armida Goodman LPN [facility] 11-27-2022 09:50-0400 Body mass index (BMI) [Ratio] 24.75 kg/m2 Armida Goodman LPN [facility].; [facility], [facility]. 11-27-2022 09:50-0400 Body surface area Derived from formula 1.58 m2 Armida Goodman LPN [facility], [facility].; [place] [facility], [facility]. 11-27-2022 09:50-0400 Body temperature 98.6 [degF] Armida Goodman TATTOO TECHNICIAN [facility].; [employer] [facility], [employer]. Comment on above: Method: Tympanic 11-27-2022 09:50-0400 Body weight 59.42 kg Armida Goodman LPN [facility], [facility]. 11-27-2022 09:50-0400 Diastolic blood pressure 82 mm[Hg] Armida Goodman LPN [facility].; [employer], [employer]. Comment on above: Patient Position: Sitting; Cuff Location : Left Arm; Cuff Size: Standard 11-27-2022 09:50-0400 Heart rate 78 /min Armida Goodman LPN [facility].; [employer]. Comment on above: Pattern: Regular 11-27-2022 09:50-0400 Systolic blood pressure 127 mm[Hg] Armida Goodman [facility].; [employer], [employer]. Comment on above: Patient Position: Sitting; Cuff Location : Left Arm; Cuff Size: Standard 11-20-2022 15:19-0400 Body height 154.94 cm Mishel Flores CNM Work Phone: [facility]; [facility]. 11-20-2022 15:19-0400 Body mass index (BMI) [Ratio] 25.32 kg/m2 MalibuIQtain CNM Work Phone: [facility]; [employer]. 11-20-2022 15:19-0400 Body surface area Derived from formula 1.59 m2 [employer] Uptain CNM Work Phone: [facility]; [employer]. 11-20-2022 15:19-0400 Body weight 60.78 kg [employer] Uptain CNM Work Phone: [employer].; [employer] 11-20-2022 15:19-0400 Diastolic blood pressure 82 mm[Hg] [employer] Uptain CNM Work Phone: [facility]; [employer]. Comment on above: Patient Position: Sitting; Cuff Location : Left Arm; Cuff Size: Standard 11-20-2022 15:19-0400 Heart rate 99 /min [employer] Uptain CNM Work Phone: [facility]; [employer]. Comment on above: Pattern: Regular 11-20-2022 15:19-0400 Systolic blood pressure 121 mm[Hg] Crystal Uptain CNM Work Phone: [facility]; [employer]. Comment on above: Patient Position: Sitting; Cuff Location : Left Arm; Cuff Size: Standard 07-26-2017 09:37-0400 Body temperature 102.4 [degF] Crystal Uptain CNM Work Phone: [facility]; [employer]. Comment on above: Method: Tympanic 07-26-2017 09:37-0400 Body weight 55.34 kg [employer] Uptain CNM Work Phone: [employer].; [employer] 07-26-2017 09:37-0400 Diastolic blood pressure 68 mm[Hg] [employer] Uptain CNM Work Phone: [employer].; [employer] Comment on above: Patient Position: Sitting; Cuff Location : Left Arm; Cuff Size: Standard 07-26-2017 09:37-0400 Heart rate 133 /min [employer] Uptain CNM Work Phone: [employer]; [facility] Comment on above: Pattern: Regular 07-26-2017 09:37-0400 Inhaled oxygen concentration 21 % Crystal Uptain CNM Work Phone: [employer]; [facility] Comment on above: Room air 07-26-2017 09:37-0400 SaO2% (BldA) [Mass fraction] 97 % [employer] Uptain CNM Work Phone: [employer]; [facility] 07-26-2017 09:37-0400 Systolic blood pressure 107 mm[Hg] [employer] Uptain CNM Work Phone: [employer]; [facility] Comment on above: Patient Position: Sitting; Cuff Location : Left Arm; Cuff Size: Standard Encounters Encounter Date Encounter Type Care Provider Facility Start: 03-15-2024 End: 03-15-2024 ambulatory [facility] Start: 03-08-2024 End: 03-08-2024 ambulatory [facility] Start: 02-23-2024 End: 02-23-2024 ambulatory [facility] Start: 02-09-2024 End: 02-09-2024 ambulatory [facility] Start: 01-26-2024 End: 01-26-2024 ambulatory [facility] Start: 01-12-2024 End: 01-12-2024 ambulatory [facility] Start: 12-11-2023 End: 12-11-2023 ambulatory [facility] Start: 08-22-[address] [facility] Start: 08-21-2023 End: 08-21-2023 ambulatory PRAKASH CNM [facility] Start: 08-07-2023 End: 08-07-2023 ambulatory MINI HOFF [facility] Start: 08-05-2023 End: 08-05-2023 ambulatory PRAKASH CNM [facility] Start: 03-13-2023 End: 03-13-2023 ambulatory PRAKASH CNM [facility] Start: 03-10-2023 End: 03-10-2023 ambulatory PRAKASH CNM [facility] Start: 03-08-2023 End: 03-08-2023 ambulatory PRAKASH CNM [facility] Start: 12-02-2022 End: 12-02-2022 ambulatory CRYSTAL CNM UPTAIN [facility] Start: 12-02-2022 End: 12-02-2022 Orders Crystal Uptain CNM Work Phone: [facility] Start: 11-27-2022 End: 11-27-2022 Office outpatient visit 15 minutes Crystal Uptain CNM Work Phone: [facility] Start: 11-20-2022 End: 11-23-2022 Office outpatient new 20 minutes Crystal Uptain CNM Work Phone: [facility] Start: 07-26-2017 End: 07-26-2017 Patient encounter procedure Crystal Uptain CNM Work Phone: [facility] Procedures Date Procedure Procedure Detail Performing Clinician Start: 12-02-2022 End: 12-02-2022 Us pelvic nonobstetric real-time image complete Crystal K Uptain CNM Work Phone: Start: 11-20-2022 End: 11-20-2022 No Known Past Surgical History Crystal Uptain CNM Work Phone: Start: 11-20-2022 End: 11-25-2022 Us uterus 14 wk transabdl 04/28 gestat Crystal K Uptain CNM Work Phone: Payers Date Payer Category Payer Unknown [id number] 2.16.8 [id number] 2001 Unknown [id number] 2.16.8 [id number] 2001 Unknown [id number] 2.16.8 [id number] 2001 Unknown [id number] 2.16.8 [id number] 2001 Unknown [id number] 2.16.8 [id number] 2001 Unknown [id number] 2.16.8 [id number] 2001 Unknown [id number] 2.16.8 [id number] 2001 Unknown [id number] 2.16.8 [id number] 2001 Unknown [id number] 2.16 [id number] 2001 Unknown [id number] 2.16 [id number] 2001 Unknown [id number] 2.16 [id number] 2001 Unknown [id number] 2.16 [id number] 2001 Unknown [id number] 2.16 [id number] 2001 Unknown [id number] 2.16 [id number] 2001 Unknown [id number] 2.16 [id number] Unknown 68 Unknown Unknown [id number] Social History Date Type Detail Facility Spouse Spouse Shen Macdonald [employer]. Female Shen Macdonald [employer]. Work Phone: Tobacco smoking consumption unknown [employer]. Work Phone: Summary Purpose Family History No Family History Records Found No Known Family History Onset: 3 Status:Active No Known Family History Onset: 3 Status:Active No Known Family History Onset: 3 Status:Active No Known Family History Onset: 3 Status:Active No Known Family History Onset: 3 Status:Active No Known Family History Onset: 3 Status:Active No Known Family History Onset: 3 Status:Active No Known Family History Onset: 3 Status:Active No Known Family History Onset: 3 Status:Active No Known Family History Onset: 3 Status:Active Advance Directives No Advanced Directives Records FoundNo Advanced Directives Records Found Additional Source Comments INFORMATION SOURCE (unrecogn ized section and content) DATE CREATED AUTHOR 08/23/2023 [facility] DATE CREATED AUTHOR AUTHOR'S PATT PORARS 03/17/2024 [facility] FOR RECORDS PERTAINING TO PATIENTS WHO ARE OR HAVE BEEN ENROLLED IN A CHEMICAL DEPENDENCY/SUBSTANCEABUSE PROGRAM, SOME INFORMATION MAY BE OMITTED. This clinical summary was aggregated from multiple sources. Caution should be exercised in using it in the provision of clinical care. This summary normalizes information from multiple sources, and as a consequence, information in this document may materially change the coding, format and clinical context of patient data. In addition, data may be omitted in some cases. CLINICAL DECISIONS SHOULD BE BASED ON THE PRIMARY CLINICAL RECORDS. [email or web address] provides no warranty or guarantee of the accuracy or completeness of information in this document.
--- OUTSIDE RECORDS SUMMARY | 2024-03-18 07:30 | XMS RPT_ITS | CCD ---
Author Organization [facility] Care Team Providers Care Car Lubricator Name Role Phone NURIS, PRAKASH CNM Consulting Unavailable BRAEDEN, JASMIN MAINTENANCE AND UTILITIES SUPERVISOR Primary Care Unavailable BRAEDEN, JASMIN MAINTENANCE AND UTILITIES SUPERVISOR Attending Unavailable BRAEDEN, JASMIN MAINTENANCE AND UTILITIES SUPERVISOR Admitting Unavailable PROVIDER, UNKNOWN Consulting Unavailable UPTAIN, [...] LAWLER, PRAKASH CNM Consulting Unavailable BRAEDEN, JASMIN MAINTENANCE AND UTILITIES SUPERVISOR Primary Care Unavailable BRAEDEN, JASMIN MAINTENANCE AND UTILITIES SUPERVISOR Attending Unavailable BRAEDEN, JASMIN MAINTENANCE AND UTILITIES SUPERVISOR Admitting Unavailable PROVIDER, UNKNOWN Consulting Unavailable LAWLER, [...] Unavailab le DARA HILLS Attending Unavailab HERNANDO Peters Primary Care Unavailable HERNANDO GROSSMAN Primary Care [...] 1 {Package} Refills: 0 Ordered: 27-Nov-2017 Yumiko LAMINA SEARCHERTamar Martin Start: 26-Jul-2017 End: 27-Nov-2017 Status: Inactive [...] Interpretation Reference Range Facility Progress Noteon 01-12-2024 [employer] Authentication Interface Message Text [facility] MATERNAL- MEDICINE CONSULT Referring/Requesting Provider: Dara Hills, * PCP: Hernando Grossman PA-C INDICATION FOR CONSULT: monochorionic diamniotic twin HISTORY OF PRESENT ILLNESS: Patient is a 23 y.o. at 27w3d who presents for consultation regarding monochorionic diamniotic twin . Consult requested to review recommend US surveillance. PT member of the [employer] and would like to choose testing that [...] after 32 weeks. 2. Please notify the international trade teacher of the diagnosis of UTD. Generally, two [...] these incr (more content not included)... Normal [facility] PREG SERUM QUANTon 4 HCG QUANTITATIVE 83689 mIU/mL High 0 - 6 [facility] Comment on above: Result Comment: Rosalina grigsby [...] 3RD TRIMESTER 1000-50,000 Performed By: #### 2 [id number] #### [facility],[address] [place] [address] PREG SERUM QUANTon 4 HCG QUANTITATIVE 940 mIU/mL High 0 - 6 [facility] Comment on above: Result Comment: Rosalina grigsby [...] 3RD TRIMESTER 1000-50,000 Performed By: #### 2 [id number] #### [facility],[address] [place], [place] [id number] PREG SERUM QUANTon 4 HCG QUANTITATIVE 340 mIU/mL High 0 - 6 [facility] Comment on above: Result Comment: Rosalina grigsby [...] 3RD TRIMESTER 1000-50,000 Performed By: #### 2 [id number] #### [facility],[address] [place] [address] PREG SERUM QUANTon 3 HCG QUANTITATIVE 46365 mIU/mL High 0 - 6 [facility] Comment on above: Result Comment: Rosalina grigsby [...] 3RD TRIMESTER 1000-50,000 Performed By: #### 2 [id number] #### [facility],[address] [place] [address] PREG SERUM QUANTon 3 HCG QUANTITATIVE 10203 mIU/mL High 0 - 6 [facility] Comment on above: Result Comment: Rosalina grigsby [...] 3RD TRIMESTER 1000-50,000 Performed By: #### 2 [id number] #### [address] [address] PREG SERUM QUANTon 3 HCG QUANTITATIVE 9000 mIU/mL High 0 - 6 [facility] Comment on above: Result Comment: Refe rence [...] 3RD TRIMESTER 1000-50,000 Performed By: #### 2 [id number] #### [address] [address] [place] PELVICon 12-02-2022 [place] [id number] Patient: CARLYN SOLIS Phone#: : [phone] Age: 22 Gender: F Pt. Type: Out Account: [id number] Location: Ordering: [employer] Exam Date: 12/02/2022/10:15 Family Phys: Charge Code: [id number] Physician: [place] Order #: [id number] Dose#: PROCEDURE: PELVIC ULTRASOUND, TRANSABDOMINAL COMPARISON: None. [...] Solomon MD on 12/02/2022 at 11:17 Normal [facility] Laboratory - Chemistry and C hemistry - challengeon 11-20-2022 Bilirubin Ql (U) Negative [facility] [employer]. Ketones Ql (U) Negative [facility] [employer]. pH (U) 6.0 [pH] Normal [facility] [employer]. Specific gravity (U) [Rel density] 1.025 Normal [facility] [employer]. Urobilinogen Qn (U) 0.2 mg/dL Normal [facility] [employer]. Laboratory - Hematology and Cell countson 11-20-2022 Hemoglobin Ql (U) trace- intact Normal [facility] [email or web address]. Laboratory - Specimen inform ationon 11-20-2022 Appearance (U) clear Normal [facility].; [email or web address]. Color (U) yellow Normal [facility] [employer]. Laboratory - Urinalysison Glucose Test strip (U) [Mass/Vol] Negative Normal [facility] [employer]. Leukocyte esterase Test strip Ql (U) Negative Normal [facility] [employer]. Nitrite Ql (U) Negative [facility] [employer]. Protein Ql (U) Negative [facility] [employer]. Laboratory - Microbiology an d Antimicrobial susceptibilityon 07-26-2017 FLUAV Ag IA Ql (Throat) Negative Normal [facility].; [place] [facility], [facility] No Panel Informationon 07-26 MONOSPOT TEST (IN HOUSE) Negative Normal [facility].; [facility], [facility] Vital Signs Date Time Vital Sign Value Performing Clinician Facility 11-27-2022 09:50-0400 Body height 154.94 cm Armida Goodman LPN [facility].; [facility] 11-27-2022 09:50-0400 Body mass index (BMI) [Ratio] 24.75 kg/m2 Armida Goodman LPN [facility].; [facility], [facility]. 11-27-2022 09:50-0400 Body surface area Derived from formula 1.58 m2 Armida Goodman LPN [facility], [facility].; [place] [facility], [facility]. 11-27-2022 09:50-0400 Body temperature 98.6 [degF] Armida Goodman LAMINA SEARCHER [facility].; [facility], [employer]. Comment on above: Method: Tympanic 11-27-2022 09:50-0400 Body weight 59.42 kg Armida Goodman LPN [facility].; [facility], [facility]. 11-27-2022 09:50-0400 Diastolic blood pressure 82 mm[Hg] Armida Goodman LPN [facility].; [employer], [employer]. Comment on above: Patient Position: Sitting; Cuff Location : Left Arm; Cuff Size: Standard 11-27-2022 09:50-0400 Heart rate 78 /min Armida Goodman LPN [facility].; [email or web address]. Comment on above: Pattern: Regular 11-27-2022 09:50-0400 Systolic blood pressure 127 mm[Hg] Armida Goodman [facility].; [employer], [employer]. Comment on above: Patient Position: Sitting; Cuff Location : Left Arm; Cuff Size: Standard 11-20-2022 15:19-0400 Body height 154.94 cm Mishel Flores CNM Work Phone: [facility]; [facility]. 11-20-2022 15:19-0400 Body mass index (BMI) [Ratio] 25.32 kg/m2 Airectain CNM Work Phone: [employer]; [employer]. 11-20-2022 15:19-0400 Body surface area Derived from formula 1.59 m2 Casenet Uptain CNM Work Phone: [employer]; [employer]. 11-20-2022 15:19-0400 Body weight 60.78 kg Casenet Uptain CNM Work Phone: [employer]. 11-20-2022 15:19-0400 Diastolic blood pressure 82 mm[Hg] Casenet Uptain CNM Work Phone: [employer]; [employer]. Comment on above: Patient Position: Sitting; Cuff Location : Left Arm; Cuff Size: Standard 11-20-2022 15:19-0400 Heart rate 99 /min Casenet Uptain CNM Work Phone: [employer]; [employer]. Comment on above: Pattern: Regular 11-20-2022 15:19-0400 Systolic blood pressure 121 mm[Hg] Crystal Uptain CNM Work Phone: [employer]; [employer]. Comment on above: Patient Position: Sitting; Cuff Location : Left Arm; Cuff Size: Standard 07-26-2017 09:37-0400 Body temperature 102.4 [degF] Crystal Uptain CNM Work Phone: [employer]; [employer]. Comment on above: Method: Tympanic 07-26-2017 09:37-0400 Body weight 55.34 kg Casenet Uptain CNM Work Phone: [employer]. 07-26-2017 09:37-0400 Diastolic blood pressure 68 mm[Hg] Casenet Uptain CNM Work Phone: [employer].; [employer] Comment on above: Patient Position: Sitting; Cuff Location : Left Arm; Cuff Size: Standard 07-26-2017 09:37-0400 Heart rate 133 /min Casenet Uptain CNM Work Phone: [employer]; [employer] Comment on above: Pattern: Regular 07-26-2017 09:37-0400 Inhaled oxygen concentration 21 % Crystal Uptain CNM Work Phone: [employer]; [employer] Comment on above: Room air 07-26-2017 09:37-0400 SaO2% (BldA) [Mass fraction] 97 % Casenet Uptain CNM Work Phone: [employer]; [employer] 07-26-2017 09:37-0400 Systolic blood pressure 107 mm[Hg] Casenet Uptain CNM Work Phone: [employer]; [employer] Comment on above: Patient Position: Sitting; Cuff Location : Left Arm; Cuff Size: Standard Encounters Encounter Date Encounter Type Care Provider Facility Start: 03-15-2024 End: 03-15-[address] [facility] Start: 03-08-2024 End: 03-08-[address] [facility] Start: 02-23-2024 End: 02-23-[address] [facility] Start: 02-09-2024 End: 02-09-[address] [facility] Start: 01-26-2024 End: 01-26-[address] [facility] Start: 01-12-2024 End: 01-12-[address] [facility] Start: 12-11-2023 End: 12-11-[address] [facility] Start: 08-22-2023 ambulatory PRAKASH GRIER [facility] Start: 08-21-2023 End: 08-21-2023 ambulatory PRAKASH CNM [facility] Start: 08-07-2023 End: 08-07-2023 ambulatory MINI HOFF [facility] Start: 08-05-2023 End: 08-05-2023 ambulatory PRAKASH CNM [facility] Start: 03-13-2023 End: 03-13-2023 ambulatory PRAKASH CNM [facility] Start: 03-10-2023 End: 03-10-2023 ambulatory PRAKASH CNM [facility] Start: 03-08-2023 End: 03-08-2023 ambulatory PRAKASH CNM [facility] Start: 12-02-2022 End: 12-02-2022 ambulatory CRYSTAL CNM UPTAIN [facility] Start: 12-02-2022 End: 12-02-2022 Orders Crystal Uptain CNM Work Phone: [employer] Start: 11-27-2022 End: 11-27-2022 Office outpatient visit 15 minutes Crystal Uptain CNM Work Phone: [employer] Start: 11-20-2022 End: 11-23-2022 Office outpatient new 20 minutes Crystal Uptain CNM Work Phone: [employer] Start: 07-26-2017 End: 07-26-2017 Patient encounter procedure Crystal Uptain CNM Work Phone: [employer] Procedures Date Procedure Procedure Detail Performing Clinician Start: 12-02-2022 End: 12-02-2022 Us pelvic nonobstetric real-time image complete Crystal K Uptain CNM Work Phone: Start: 11-20-2022 End: 11-20-2022 No Known Past Surgical History Crystal Uptain CNM Work Phone: Start: 11-20-2022 End: 11-25-2022 Us uterus 14 wk transabdl 04/28 gestat Crystal K Uptain CNM Work Phone: Payers Date Payer Category Payer Unknown [id number] 2.16.8 [id number] 2001 Unknown [id number] 2.16.8 [id number] 2001 Unknown [id number] 2.16.8 [id number] 2001 Unknown [id number] 2.16.8 [id number] 2001 Unknown [id number] 2.16.8 [id number] 2001 Unknown [id number] 2.16.8 [id number] 2001 Unknown [id number] 2.16.8 [id number] 2001 Unknown [id number] 2.16.8 [id number] 2001 Unknown [id number] 2.16 [id number] 2001 Unknown [id number] 2.16 [id number] 2001 Unknown [id number] 2.16 [id number] 2001 Unknown [id number] 2.16 [id number] 2001 Unknown [id number] 2.16 [id number] 2001 Unknown [id number] 2.16 [id number] 2001 Unknown [id number] 2.16 [id number] Unknown 68 Unknown Unknown [id number] Social History Date Type Detail Facility Spouse Spouse Shen Macdonald [employer]; [employer]. Female Shen Macdonald [employer]; [employer]. Work Phone: Tobacco smoking consumption unknown [employer]. Work Phone: Summary Purpose Family History No [...] section and content) DATE CREATED AUTHOR 08/23/2023 [facility] DATE CREATED AUTHOR AUTHOR'S PATT PORRAS 03/17/2024 [facility] FOR RECORDS PERTAINING TO PATIENTS WHO [...] BE BASED ON THE PRIMARY CLINICAL RECORDS. [employer] provides no warranty or guarantee of the accuracy or completeness of information in this document.
[2024-03-18] MEDS: Lactated Ringers 1,000 ML 50 ML IV ×2 (08:00→18:53)
[2024-03-18 08:25] LABS: Absolute Lymphocyte Count 1.51 X10^3/uL (0.83-4.51); Absolute Neutrophil Count 6.7 X10^3/uL (2.0-7.7); Basophil# 0.02 X10^3/uL; Basophil% 0.2 % (0-1); Eosinophil# 0.07 X10^3/uL; Eosinophils% 0.8 % (0-5); Hemoglobin 10.5 g/dL (12.0-15.0); Lymphocyte # 1.51 X10^3/ul (0.83-4.51); Lymphocyte % 16.5 % (19-41); Mean Corp Hgb Conc 33.9 g/dL (32-36); Mean Corpuscular Hgb 27.8 pg (27.0-32.0); Mean Platelet Vol. 12.8 fl (6.2-12.0); Monocyte# 0.72 X10^3/uL; Monocyte% 7.9 % (0-10); NRBC Flagged by Analyzer 0 % (0-5); Neutrophil # 6.74 X10^3/uL (2.7-7.7); Neutrophil % 73.8 % (47-70); Platelet Count 114 K/mm3 (150-450); RBC Distribution Width SD 40.9 fl (35.1-43.9); Red Blood Count 3.78 M/mm3 (4.2-5.4); White Blood Count 9.1 K/mm3 (4.4-11.0)
--- NOTE | 2024-03-18 08:26 | HP.PCM.OB_ITS ---
HPI - General General Date of Admission: 03/18/24 HPI Narrative ALE SOLIS, is a 24y/o @ 36 weeks 6 days who presents to L&D for induction of labor for mono/di twins. She was followed by MFM this and other than gestational diabetes, controlled with diet, the has been uncomplicated Maternal Data Information BRODIE Calculator Estimated Delivery Date Method Current WG Current Estimate 04/09/24 LMP (Certain) 36w 6d # 2 PFSH PFSH Medical History Abnormal glucose affecting Non-smoker History of miscarriage, currently Home Medications ?Medication ?Instructions ?Recorded ?Last Taken ?Type docosahexaenoic acid 200 mg mg PO 08/22/23 Unknown History capsule (Algal Hooven-3 DHA) ferrous sulfate 15 mg iron (75 1 ml PO DAILY 08/22/23 Unknown History mg)/mL oral drops (Ethan-In-Apoorva) magnesium hydroxide in mineral oil 60 ml PO DAILY 08/22/23 Unknown History 6 %-25 % oral emulsion zinc glycinate 30 mg capsule 15 mg PO DAILY 08/22/23 Unknown History blood sugar diagnostic (Blood #50 ea 01/29/24 Unknown Rx Glucose Test strips) blood-glucose meter #1 ea 01/29/24 Unknown Rx lancets #200 ea 01/29/24 Unknown Rx Allergy/AdvReac Type Severity Reaction Status Date / Time No Known Allergies Allergy Verified 03/15/24 11:16 Surgical History H/O dilation and curettage No history of previous surgery Social History adopted: No household members: spouse current occupational status: unemployed current occupation: [employer] current occupational exposures/hazards: No pets and animals: Yes pets and animals: dog(s) history of recent travel: No (- October) sexually active: Yes Smoking Status: Never smoker alcohol intake: never substance use type: does not use well-balanced diet: about half the time caffeine: No eating out: rarely or never during the past year weight has: remained stable what type of physical activity do you participate in: none bradley/sikhism: Nondenominational seatbelt use: sometimes do you feel safe at home: Yes additional social history: Juanjo Cantu History 3 Elective abortions Hx Para 0 Spontaneous abortions 2 Hx # Term Pregnancies Ectopic pregnancies Hx # Pregnancies Multiple births # of living children 0 Past Pregnancies Del. Date Name GA/Weeks Outcome Route Bth Weight Infant Gen Labor Lgth Anesthesia Del Tayoatjeremy Provider FOB Unknown October 2022 miscarriage 9 wks 04/01/23 spontaneous Visit Details Expected Delivery Route/Plan Labor Preferences- CB/BF classes: [] labor support person: [] labor intervention preferences: [] pain management options preferred: [] cut cord/dad catch: [] : [] PP control planned: [] discussed possible routes of delivery and associated risks: [] special requests: [] Plans Covid status: [] Flu vaccine: [] Tdap vaccine: [] Rhogam: [] LARC form signed: [] Problem list reviewed and updated with the most current plan of care details and appropriate orders placed. Relevant counseling for the gestational age provided. Continue routine care and follow up unless otherwise noted in visit notes/problem list details OB Flowsheet Initial Weight: 141 lb Date -?-?-?-?-?-?-?-?-?-?-?-?- EGA Weight BP Urine Prot -?-?-?-?-?-?-?-?-?-?-?-?- Glucose FHR FuHt Pres Dilation -?-?-?-?-?-?-?-?-?-?-?-?- Effaced St Visit Note 09/05/23 -?-?-?-?-?-?-?-?-?-?-?-?- 9w 0d 141 lb 6 oz (+6 oz) -?-?-?-?-?-?-?-?-?-?-?-?- A 180 -?-?-?-?-?-?-?-?-?-?-?-?- B 175 A -?-?-?-?-?-?-?-?-?-?-?-?- B -?-?-?-?-?-?-?-?-?-?-?-?- A -?-?-?-?-?-?-?-?-?-?-?-?- B A LC- CRL con with LMP. declines nipt. -?-?-?-?-?-?-?-?-?-?-?-?- B 10/01/23 -?-?-?-?-?-?-?-?-?-?-?-?- 12w 5d 138 lb (-3 lb) 130/87 Negative -?-?-?-?-?-?-?-?-?-?-?-?- Negative A 170 -?-?-?-?-?-?-?-?-?-?-?-?- B 165 A -?-?-?-?-?-?-?-?-?-?-?-?- B -?-?-?-?-?-?-?-?-?-?-?-?- A -?-?-?-?-?-?-?-?-?-?-?-?- B A SM- no vb crampi ng US shows possible lambda sign today suspect di di twins, refer to mfm for scan -?-?-?-?-?-?-?-?-?-?-?-?- B 10/29/23 -?-?-?-?-?-?-?-?-?-?-?-?- 16w 5d 144 lb (+3 lb) 114/74 Negative -?-?-?-?-?-?-?-?-?-?-?-?- Negative A 145 -?-?-?-?-?-?-?-?-?-?-?-?- B 150 A -?-?-?-?--?-?-?-?-?-?-?-?- B -?-?-?-?-?-?-?-?-?-?-?-?- A -?-?-?-?-?-?-?-?-?-?-?-?- B A KW- no vb/crampi ng. US scheduled for 11/23. possible MFM consult after US if not confirmed di/di twins -?-?-?-?-?-?-?-?-?-?-?-?- B 11/24/23 -?-?-?-?-?-?-?-?-?-?-?-?- 20w 3d 158 lb 2 oz (+17 lb 2 oz) 133/87 -?-?-?-?-?-?-?-?-?-?-?-?- A 150 -?-?-?-?-?-?-?-?-?-?-?-?- B 157 26 A -?-?-?-?-?-?-?-?-?-?-?-?- B -?-?-?-?-?-?-?-?-?-?-?-?- A -?-?--?-?-?-?-?-?-?-?-?-?- B A JV- has anatomy scan now. no complaints. will check bp at home today. -?-?-?-?-?-?-?-?-?-?-?-?- B 12/16/23 -?-?-?-?-?-?-?-?-?-?-?-?- 23w 4d 165 lb 2 oz (+24 lb 2 oz) 125/79 Negative -?-?-?-?-?-?-?-?-?-?-?-?- Negative A 149 -?-?-?-?-?-?-?-?-?-?-?-?- B 153 A Cephalic -?-?-?-?-?-?-?-?-?-?-?-?- B Cephalic -?-?-?-?-?-?-?-?-?-?-?-?- A -?-?-?-?-?-?-?-?-?-?-?-?- B A JV- no lof, vagi nal bleeding, or dec fm. has some discharge and it appears physiologic. does not want to do all the things that [facility] recommends (see last ultrasound report) long discussion about her choice and decisions on things but also our right to dismiss from our practice if becomes too high risk. -?-?-?-?-?-?-?-?-?-?-?-?- B 01/13/24 -?-?-?-?-?-?-?-?-?-?-?-?- 27w 4d 171 lb 4 oz (+30 lb 4 oz) 118/76 Negative -?-?-?-?-?-?-?-?-?-?-?-?- Negative A 146 -?-?-?-?-?-?-?-?-?-?-?-?- B 135 A Cephalic -?-?-?-?-?-?-?-?-?-?-?-?- B Breech -?-?-?-?-?-?-?-?-?-?-?-?- A -?-?-?-?-?-?-?-?-?-?-?-?- B A JV- ultrasound r eviewed with patient. She has decided to be compliant with mfm .Her only request is to do her glucola at 29 weeks. is rh neg and she will bring her card in with his blood type next visit. -?-?-?-?-?-?-?-?-?-?-?-?- B 01/26/24 -?-?-?-?-?-?-?-?-?-?-?-?- 29w 3d 173 lb (+32 lb) 103/69 Negative -?-?-?-?-?-?-?-?-?-?-?-?- Negative A 150 -?-?-?-?-?-?-?-?-?-?-?-?- B 170 A Cephalic -?-?-?-?-?-?-?-?-?-?-?-?- B Breech -?-?-?-?-?-?-?-?-?-?-?-?- A -?-?-?-?-?-?-?-?-?-?-?-?- B A KW- no vb/lof/ct x. good fm. no rhogam today- is O-. glucose today -?-?-?-?-?-?-?-?-?-?-?-?- B Plan weekly BPPs at 32 weeks alternating WCH and MFM. Sees MFM at 32 weeks 02/09/24 -?-?-?-?-?-?-?-?-?-?-?-?- 31w 3d 173 lb 6 oz (+32 lb 6 oz) 117/80 Negative -?-?-?-?-?-?-?-?-?-?-?-?- Negative A 143 -?-?-?-?-?-?-?-?-?-?-?-?- B 145 A Cephalic -?-?-?-?-?-?-?--?-?-?-?-?- B Cephalic -?-?-?-?-?-?-?-?-?-?-?-?- A -?-?-?-?-?-?-?-?-?-?-?-?- B A JV- fasting leonard morris was getting a little high, however checked her glucose w ith her mom's monitor and it was 20 points off. She will buy a new one today. Growth scan from today is pending. -?-?-?-?-?-?-?-?-?-?-?-?- B 02/23/24 -?-?-?-?-?-?-?-?-?-?-?-?- 33w 3d 177 lb (+36 lb) Negative -?-?-?-?-?-?-?-?-?-?-?-?- Negative A 141 -?-?-?-?-?-?-?-?-?-?-?-?- B 157 A Cephalic -?-?-?-?-?-?-?-?-?-?-?-?- B Cephalic -?-?-?-?-?-?-?-?-?-?-?-?- A -?-?-?-?-?-?-?-?-?-?-?-?- B A KW- No vb/lof/ct x. good fm. fasting BS 80-90. PP are 80-100. will decrease testing to twice daily. had bpp with MFM today. -?-?-?-?-?-?-?-?-?-?-?-?- B 03/08/24 -?-?-?-?-?-?-?-?-?-?-?-?- 35w 3d 180 lb 8 oz (+39 lb 8 oz) 128/83 Negative -?-?-?-?-?-?-?-?-?-?-?-?- Negative A 139 -?-?-?-?-?-?-?-?-?-?-?-?- B 150 A Cephalic -?-?-?-?-?-?-?-?-?-?-?-?- B Cephalic 1 -?-?-?-?-?-?-?-?-?-?-?-?- 50 A -2 -?-?-?-?-?-?-?-?-?-?-?-?- B A JV- no complaint s today other than low back pressure. bpp was done today but pending. planning 37 week IOL. gbs collected today -?-?-?-?-?-?-?-?-?-?-?-?- B 03/15/24 -?-?-?-?-?-?-?-?-?-?-?-?- 36w 3d 182 lb (+41 lb) 143/94 Negative -?-?-?-?-?-?-?-?-?-?-?-?- Negative A 150 -?-?-?-?-?-?-?-?-?-?-?-?- B 135 A -?-?-?-?-?-?-?-?-?-?-?-?- B 3 -?-?-?-?-?-?-?-?-?-?-?-?- 70 A -?-?-?-?-?-?-?-?-?-?-?-?- B A SM- no vb lof go od fm no reuglar ctx BS controlled scheduled IOL -?-?-?-?-?-?-?-?-?-?-?-?- B ROS Constitutional Constitutional: Denies change in weight, fatigue, fever(s), headache(s), poor appetite or weakness Eyes Eyes: Denies blurry vision, change in vision, seeing flashes or spots in vision ENT HEENT: Denies dizziness, headache(s), loss taste/smell or sore throat Cardiovascular Cardiovascular: Denies chest pain, dizziness, dyspnea, irregular heart rhythm, leg edema, palpitations, rapid heart rate or vomiting Respiratory/Chest Respiratory/Chest: Denies chest tightness, cough, dyspnea or breast pain Gastrointestinal Gastrointestinal: Denies abdominal pain, anorexia, constipation, cramping, diarrhea, hemorrhoids, vomiting or weight changes Genitourinary Genitourinary: Denies dysuria, flank pain, genital lesions, genital pain, urinary frequency or urinary urgency Musculoskeletal Musculoskeletal: Denies back pain, difficulty walking, joint pain, limited range of motion, muscle cramps or numbness Integumentary Integumentary: Denies lesions or unusual bruising Neurologic Neurologic: Denies abnormal movements, abnormal speech, dizziness, numbness, seizure-like activity or syncope Psychiatric Psychiatric: Denies anxiety, behavioral changes, change in appetite, change in libido, cognitive impairment, confusion, depression, difficulty concentrating, hallucinations or suicidal thoughts Endocrine Endocrinology: Denies excessive sweating, polydipsia or polyuria Hematologic/Lymphatic Hematologic/Lymphatic: Denies easy bleeding, easy bruising or lymphadenopathy Allergic/Immunologic Allergic/Immunologic: Denies itchy eyes, lip swelling, seasonal rhinorrhea, rhinitis, throat swelling, tongue swelling, eczemia, wheezing or asthma Vital Signs Vital Signs Vital Signs: 03/18/24 07:41 03/18/24 07:41 03/18/24 07:42 Pulse Rate 93 89 Blood Pressure 138/83 H BP Systolic 138 BP Diastolic 83 Pulse Ox 03/18/24 07:42 03/18/24 07:47 03/18/24 07:47 Pulse Rate 96 Blood Pressure BP Systolic BP Diastolic Pulse Ox 97 97 03/18/24 07:51 03/18/24 07:51 Pulse Rate 86 Blood Pressure BP Systolic BP Diastolic Pulse Ox 97 Physical Exam Const alert, oriented x3, no apparent distress and healthy appearing General Appearance: cooperative; Negative for anxious HEENT normocephalic Face and Sinus: normal facial exam Eyes EOMs intact bilaterally and no scleral icterus General Eye: normal appearance of both eyes Neck full ROM and supple Lymph Lymphatic: no lymphadenopathy noted Chest Chest: abnormal inspection of the chest Resp normal respiratory effort Effort and Inspection: able to speak in complete sentences Cardio regular rate GI soft to palpation and non-tender Inspection: gravid Palpation: soft; Negative for tender Back/Spine no CVA tenderness Extremity normal to inspection, full ROM and no clubbing, cyanosis or edema General Extremity: Negative for calf tenderness or edema Skin Lesions: no lesions Rashes: no rashes Psych mental status grossly normal Labs Labs Labs: Blood Type A NEGATIVE Antibody Screen NEGATIVE Hct 31.0 % (37-47) L Hgb 10.5 g/dL (12.0-15.0) L Obstetrics Ultrasound Syphilis Total Ab Non-reactive Rubella IgG Antibody Non-Reactive (Nonreactive) Hep Bs Antigen Non-Reactive (Nonreactive) Hepatitis C Antibody Non-Reactive (Nonreactive) Chlamydia DNA (DYLAN) Negative (Negative) N.gonorrhoeae DNA (DYLAN) Negative (Negative) HIV 1&2 Antibody Non-Reactive (Nonreactive) Glucose 1 Hr 50 gm 163 mg/dL (70-140) H Gest Glucose Tolerance MG/DL Assessment & Plan (1) Gestational diabetes mellitus (GDM) affecting , antepartum: COMMENT: start testing 4 times daily, nutrition consult sent. 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 testing starting 32 weeks, deliver by 37 weeks (3) Monochorionic diamniotic twin gestation: COMMENT: based on MFM assessment at [facility]. Sees MFM 01/11. Plan weekly BPPs at 32 weeks alternating WCH and MFM. Sees MFM at 32 weeks. (4) Rh negative status during : COMMENT: is 0- , no Rhogam needed (5) Anxiety: (6) : QUALIFIERS: Weeks of gestation: 36 weeks Qualified Code(s): Z3A.36 - 36 weeks gestation of COMMENT: Neg GBS. discussed genetic & carrier testing, declines. (7) History of recurrent miscarriages: COMMENT: APL screening negative genetic carrier screening carrier negative if both negative is considering hsg to rule out uterine abnormalities. - patient considering. ordered progesterone would use progesterone with positive test. recommend waiting at least 3 months prior to conceiving. (8) Supervision of high-risk : COMMENT: , BRODIE 04/09/24, Frandy PLAN: Plan Patient presents IOL,- per ACOG guidelines and MFM mono-di twins with GDM, suggested timing of delivery is between 34 and 37 weeks of gestation. she is currently 36 weeks 6 days - plan management for with pitocin/AROM. Pain management: plans epidural. GBS negative. Management of any complications: see above I have reviewed the [facility] and made any clinically relevant updates.
[2024-03-18] MEDS: Oxytocin 15 Units/NS 250ml 15 UNITS/250 ML IV.SOLN 2 UNITS IV (08:34)
[2024-03-18 08:36] LABS: Bedside Glucose 93 mg/dL (74-106)
[2024-03-18 09:04] LABS: Syphilis Antibodies Non-reactive
[2024-03-18 09:40] LABS: Bedside Glucose 93 mg/dL (74-106)
[2024-03-18] MEDS: LACTATED RINGERS 500 ML 999 ML IV ×2 (11:35→23:50)
[2024-03-18 11:56] LABS: Platelet Count 113 K/mm3 (150-450)
[2024-03-18 12:14] LABS: Prothrombin Time (Protime)PT. 13.1 SECONDS (11.7-14.9)
[2024-03-18 12:15] LABS: Partial Thromboplast Time 26.7 Seconds (24.1-36.2)
[2024-03-18 12:29] LABS: AST(SGOT) 18 U/L (15-37); Alanine Aminotransfer ALT/SGPT 11 U/L (13-56); Creatinine, Serum 0.48 mg/dL (0.55-1.02); EST Glomerular Filtration Rate 168 mL/min (>60); Est Glom Filt Rate - Afr Amer 204 mL/min (>60); Protein, Urine (Random) 10.2 mg/dL (<11.9); Protein:Creat Ratio 189 mg/g CRE (0-200)
[2024-03-18] MEDS: fentaNYL-bupivacaine (epidural) 100 ML BAG EPIDURAL ×2 (13:26→17:40)
[2024-03-18 13:35] LABS: Bedside Glucose 92 mg/dL (74-106)
[2024-03-18 14:42] LABS: Bedside Glucose 91 mg/dL (74-106)
[2024-03-18 16:18] LABS: Bedside Glucose 87 mg/dL (74-106)
[2024-03-18 17:07] LABS: Bedside Glucose 77 mg/dL (74-106)
[2024-03-18 17:47] LABS: Bedside Glucose 71 mg/dL (74-106)
--- NOTE | 2024-03-18 17:55 | PN_ITS ---
Progress Note patient remains comfortable with her epidural. She is starting to feel downward pressure current tracing: FHT: Baby A Moderate variability reactive no decelerations category I tracing Baby b: moderate variability reactive, occasional variable decelerations. [place]: q 1-2 minutes Contractions cx: 6/90/-1 A/P: mono/di twin gestation- continue pitocin. plan to repeat exam in 1 hour or sooner as needed
[2024-03-18 18:49] LABS: Bedside Glucose 80 mg/dL (74-106)
[2024-03-18 19:45] LABS: Bedside Glucose 78 mg/dL (74-106)
[2024-03-18 20:47] LABS: Bedside Glucose 72 mg/dL (74-106)
[2024-03-18] MEDS: Ondansetron 4 MG/2 ML Vial IV (21:42)
[2024-03-18] MEDS: 0.9% Saline Lock 10 ML Syringe IV (21:42)
[2024-03-18 22:37] LABS: Bedside Glucose 80 mg/dL (74-106)
--- NOTE | 2024-03-18 22:47 | PLAC_PTH ---
PATHOLOGY RESULTS PATIENT: ALE SOLIS LOC: WP U#:[id number] AGE/SX: ROOM: WP020 RE03/18/[address]: Dr. Dara Goodrich DO : 2000 BED: 1 DIS: 03/20/2024 SPEC #: [id number] RECD: 03/18/24 23:56 STATUS: NIECY DEBBIE #: [id number] EMMA: 03/18/24 22:[address]: Dara Goodrich DEPT: SURGICAL PATHOLOGY RECD BY: Keshia Batres ENTERED: 03/19/24 10:04 SP TYPE: PLACENTA OTHR DR: YUDI Nath Tissues: Placenta, NOS Procedures: Surgery Specimen Level V HEADER OPERATION: Delivery PRE-OP DIAGNOSIS: [place]/ di twins TISSUE SUBMITTED: Placenta MICROSCOPIC DIAGNOSIS Monochorionic diamniotic twin placenta (748 gm): Placenta A Umbilical cord- Trivascular with no inflammation. Placental membranes - No pathologic change. Placental disc - Sofiya-Yogesh change and intravillous congestion. Placenta B Umbilical cord- Trivascular with no evidence of inflammation. Placental membranes- No pathologic change. Placenta disc- Intervillous congestion, Sofiya-Yogesh change and mildly increased intraparenchymal fibrin plaques. AM: 03/23/2024 MICROSCOPIC DESCRIPTION Slides are reviewed. GROSS DESCRIPTION SPECIMEN: TWIN PLACENTA / CLINICAL INFORMATION: A placental disc with a dividing membrane, peripheral membrane and two umbilical cords. The umbilical cords are not designated. A. Weight: A -2.725 kg; B - 2.315 kg B. Gestational Age: 36weeks C. Sex: A- Male, B- Male PLACENTAL WEIGHT (POST FIXATION): 748gm PLACENTAL DIMENSIONS: 20.0 x 19.0 x 3.5cm PLACENTAL SHAPE: Usual ovoid PLACENTA A: MEMBRANES - Present A. Insertion: Marginal B. Site of rupture from edge: 6.0 cm from edge of placental disc C. Color of membrane: Little-velásquez D. Abnormalities: None UMBILICAL CORD - Present A. Color: Little-velásquez B. Insertion: Peripheral C. Length: 35.0cm D. Diameter: 1.2cm E. Number of vessels: Three F. Abnormalities: None PLACENTA B: MEMBRANES - Present A. Insertion: Marginal B. Site of rupture from edge: 4.0 cm from edge of placental disc C. Color of membrane: Little-velásquez D. Abnormalities: None UMBILICAL CORD - Present A. Color: Little-velásquez B. Insertion: Marginal C. Length: 36cm D. Diameter: 1.5cm E. Number of vessels: Three F. Abnormalities: None PLACENTAL DISC - Present A. Color of surface: Little-velásquez B. surface abnormalities: None C. Maternal cotyledons: Intact with minimal tears D. Attached retro placental clot: No clot E. Cut surface: Dark red and spongy F. Lesions: None G. Separate clot: Absent SECTIONS SUBMITTED: 9 cassettes 1 - Dividing membranous septum, 2- umbilical cord A, 3- placental membranes A, 4-umbilcal cord B, 5- placental membranes B, 6&7 placental disc side A, 8&9- placental disc side B. 03/22/2024 TC:5 CPT: 56278 x2
[2024-03-18] MEDS: Oxytocin 15 Units/NS 250ml 15 UNITS/250 ML IV.SOLN 334 UNITS IV (22:50)
[2024-03-18] MEDS: Methylergonovine 0.2 MG/ML Ampul IM (22:55)
[2024-03-18] MEDS: miSOPROStol 200 MCG Tablet 1000 MCG RC (23:00)
[2024-03-18] MEDS: Oxytocin 15 Units/NS 250ml 15 UNITS/250 ML IV.SOLN 83 UNITS IV (23:02)
--- NOTE | 2024-03-18 23:27 | OB.VAGDELI_ITS ---
Assessment & Plan (1) Gestational diabetes mellitus (GDM) affecting , antepartum: COMMENT: start testing 4 times daily, nutrition consult sent. 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 testing starting 32 weeks, deliver by 37 weeks (3) Monochorionic diamniotic twin gestation: COMMENT: based on MFM assessment at [facility]. Sees MFM 01/11. Plan weekly BPPs at 32 weeks alternating WCH and MFM. Sees MFM at 32 weeks. (4) Rh negative status during : COMMENT: is 0- , no Rhogam needed (5) Anxiety: (6) : QUALIFIERS: Weeks of gestation: 36 weeks Qualified Code(s): Z3A.36 - 36 weeks gestation of COMMENT: Neg GBS. discussed genetic & carrier testing, declines. (7) History of recurrent miscarriages: COMMENT: APL screening negative genetic carrier screening carrier negative if both negative is considering hsg to rule out uterine abnormalities. - patient considering. ordered progesterone would use progesterone with positive test. recommend waiting at least 3 months prior to conceiving. (8) Supervision of high-risk : COMMENT: , BRODIE 04/09/24, Frandy Maternal Data Information BRODIE Calculator Estimated Delivery Date Method Current WG Current Estimate 04/09/24 LMP (Certain) 36w 6d # 2 Final BRODIE: 04/09/24 Final BRODIE Source: LMP Doctor Who Attended Delivery: Jennifer Herring Vaginal Delivery Maternal Presentation Maternal Presentation: Medically Indicated Induction Type of Induction: Pitocin and Amniotomy Medical Reason for Induction: Maternal Medical Condition: list: (gestational diabetes ) and Compromise: list: (mono/di twins ) Vaginal Delivery Information Procedure Performed: Vacuum Assisted Vaginal Delivery Station at time of placement: +2 Number of vacuum pulls: 3 Number of vacuum pop offs: 2 Surgeon/Practitioner: Dara Goodrich Date of Procedure: 03/18/24 Pre-Procedure Diagnosis: 24 y/o @ 36 weeks 6 days, mono/di twins, gestational diabetes, arrest of descent Post-Procedure Diagnosis: 24 y/o @ 36 weeks 6 days, mono/di twins, gestational diabetes, arrest of descent Type of anesthesia: Epidural Special Medications: methergine, cytotec Estimated Blood Loss: 500cc Time of Delivery: 22:36 Findings Procedure findings: Details of delivery: This is a 24 year old woman who was admitted to labor and delivery for induction of labor of mono/di twins, gestational diabetes . The decision was made to perform a vacuum extraction due to arrest of descent after almost 2 hours. The risk benefits and alternatives of the procedure were discussed with the patient and verbal consent was obtained. The infant was noted to be at a +2 station, the cervix was completely dilated. The infant's head was noted to be in the right occiput anterior presentation. The vacuum was placed in the correct placement in front of the posterior fontanelle. This was confirmed digitally. With the patient's next contraction, the vacuum was inflated and a gentle downward pressure was used to assist with bringing the baby's head to a +3 station. With 3 pull and 2 pop offs. The head was delivered atraumatically. No nuchal cord was noted. The anterior shoulder followed by the posterior shoulder were delivered without difficulty. The infant was handed off to the patient's chest. The was found to be vigorous and crying and moving of all 4 extremities. The mouth and nares were bulb suctioned. After 60 second delay the cord was clamped and cut and the infant was handed off to the awaiting nurses for routine assessment. Next, the second membrane bag was ruptured and the patient started pushing. The station descended from a -4 to a plus 1 with 3 pushes. However after 2 contractions the heart rate matched maternal heart rate and we were unable to trace the heart rate. ultrasound was performed but difficult to see due to low station. The decision was made to apply the kiwi vacuum to baby B. With 2 pulls and 1 pop off the head delivered atraumatically. No nuchal cord was noted. The anterior shoulder followed by the posterior shoulder were delivered without difficulty. The infant was handed off to the patient's chest. The was found to be vigorous and crying and moving of all 4 extremities. The mouth and nares were bulb suctioned. After 60 second delay the cord was clamped and cut and the was handed off to the awaiting nurses for routine assessment. The placenta was delivered with gentle traction and uterine massage. Inspection of the vagina cervix and perineum was performed. There were no lacerations to the cervix. The peritoneum was found to have a 2nd degree perineal laceration. The perineal laceration was closed using a 3-0 Vicryl in the usual sterile fashion. Brisk bleeding was noted prior to and following the laceration repair. The patient was given pitocin wide open, methergine IM, and Cytotec MD. The bleeding slowed down after removal of clots from the uterus. The patient tolerated the procedure well sponge lap and needle counts were correct x2 and she is now recovering in stable condition. Presentation: Vertex Amniotic Membrane Rupture Type: Artificial Amniotic Fluid Description: Clear Placental Delivery Description: Spontaneous Placenta Disposition: Sent to Pathology Specimen collected: Yes Description of specimen(s) removed: placenta Cord Vessel Description: 3 Vessels Cord Entanglement: None Infant A Gender: Male (1 minute): 8 (5 minute): 9 Delayed Cord Clamping: Yes Leak Gang Supervisor communications specialist: No Post Vaginal Deli Medications given after delivery: IV Pitocin, IM Methergin and Other (cytotec ) Episiotomy Description: None Laceration: 2nd degree Complication Complications: No Baby B Operative Information Mode of Delivery: Vaginal Cord Vessel Description: 3 Vessels Cord Entanglement: None B gender: Male (1 minute): 8 (5 minute): 9 Delayed Cord Clamping: Yes Multi Select Codes Urinary/Genital Urinary/Genital CPT Codes: 58016 Vaginal Delivery global pkg and Other Procedure See Report (twin vacuum delivery)
--- NOTE | 2024-03-18 23:37 | DCINST_ITS ---
Discharge Instructions Diet Discharge Diet: No restrictions Activity Discharge Activity: Return to Normal Activity, May Not Drive (while taking narcotic pain medications.) and May Shower May resume sexual activity in: 4-6 weeks Dressing / Incision Call your doctor if your incision/area has: Continuous Slow Oozing, Sudden Increased Bleeding, Increased Pain/ Swelling, Increased Redness and Foul Smelling Discharge Follow Up Care Please Follow Up With: Dara Goodrich, DO When: Call [phone] to make an appointment with your doctor in 6 weeks. If you had elevated blood pressure or 4th degree laceration, you will need to be seen in 2 weeks. Test Results: Test results from this visit will be discussed in further detail at your follow- up appointment, if applicable. Discharge Plan Admission Admit Date/Time: 03/18/24 07:13 Attending Provider: Dara Goodrich Primary Care Provider: Jessica Grossman Discharge Orders/Prescriptions Prescriptions: No Action zinc glycinate 30 mg capsule 15 mg PO DAILY ferrous sulfate [Ethan-In-Apoorva] 15 mg iron (75 mg)/mL drops 1 ml PO DAILY Algal [place]-3 DHA 200 mg capsule 400 mg PO DAILY mag hydroxide in mineral oil 6-25 % emulsion 60 ml PO DAILY 28-800 mg-mcg tablet 1 tab PO DAILY (DME) Blood Glucose Test Strip See Rx Instructions .Route Qty: 50 8RF Rx Instructions: As directed, fasting and 2 hours post meals (DME) lancets Misc See Rx Instructions .Route Qty: 200 2RF Rx Instructions: As directed, fasting and 2 hours post meals (DME) blood-glucose meter Misc See Rx Instructions .Route Qty: 1 0RF Rx Instructions: As directed, fasting and 2 hours post meals. Referrals / Follow Up: Jessica Grossman, PA [Primary Care Provider] -
[2024-03-18 23:53] LABS: Pathology Specimen OB SEE PATHOLOGY REPORT
[2024-03-19] VITALS (36 sets, daily range): BP systolic 93–138; BP diastolic 49–81; PULSE 81–147; RESP 16–18; TEMP 36.4–36.9; O2SAT 96–100
[2024-03-19 00:28] LABS: Hematocrit 30.8 % (37-47); Hemoglobin 9.9 g/dL (12.0-15.0); Mean Corp Hgb Conc 32.1 g/dL (32-36); Mean Corpuscular Volume 83.9 fL (81-99); Mean Platelet Vol. 12.8 fl (6.2-12.0); Platelet Count 145 K/mm3 (150-450); RBC Distribution Width CV 14.1 % (11.6-14.6); RBC Distribution Width SD 42.8 fl (35.1-43.9); Red Blood Count 3.67 M/mm3 (4.2-5.4); White Blood Count 21.1 K/mm3 (4.4-11.0)
[2024-03-19 00:53] LABS: Bedside Glucose 88 mg/dL (74-106)
[2024-03-19] MEDS: Acetaminophen 500 MG Tablet 1000 MG PO ×2 (04:26→19:22)
[2024-03-19 06:24] LABS: Absolute Lymphocyte Count 1.09 X10^3/uL (0.83-4.51); Basophil# 0.02 X10^3/uL; Basophil% 0.1 % (0-1); Hematocrit 24.2 % (37-47); Hemoglobin 7.9 g/dL (12.0-15.0); Lymphocyte # 1.09 X10^3/ul (0.83-4.51); Lymphocyte % 6.7 % (19-41); Mean Corp Hgb Conc 32.6 g/dL (32-36); Mean Corpuscular Hgb 26.7 pg (27.0-32.0); Mean Corpuscular Volume 81.8 fL (81-99); Mean Platelet Vol. 12.5 fl (6.2-12.0); Monocyte# 1.17 X10^3/uL; Monocyte% 7.2 % (0-10); NRBC Flagged by Analyzer 0 % (0-5); Neutrophil % 85.5 % (47-70); Platelet Count 112 K/mm3 (150-450); Red Blood Count 2.96 M/mm3 (4.2-5.4); White Blood Count 16.4 K/mm3 (4.4-11.0)
--- NOTE | 2024-03-19 08:06 | PN.OBGYN_ITS ---
Subjective Subjective patient is laying in bed. She states that she got minimal sleep last night. Complains of vulvar pain and did not urinate yet since delivery. Her catheter was removed after delivery but after midnight. Her epidural catheter was also left in over night, which can be removed today. She states that her bleeding is minimal Objective Data Objective Data Vital Signs: Vital Signs Temp Pulse Resp BP Pulse Ox O2 Del Method 97.8 F 147 H 16 124/75 H 99 Room Air 03/19/24 04:00 03/19/24 08:01 03/19/24 04:00 03/19/24 07:54 03/19/24 08:01 03/19/24 04:00 Oxygen Delivery Method Room Air Weight: 180 lb Body Mass Index (BMI) 34.0 Intake & Output: Intake and Output for Last 24 Hours 03/17/24 03/18/24 03/19/24 23:59 23:59 23:59 Intake Total 3462.30 / 3462.30 750 / 750 Output Total 225 / 225 1000 / 1000 Balance 3237.30 / 3237.30 -250 / -250 Lab / Micro Data 03/19/24 05:30 03/18/24 11:39 Labs: Laboratory Results - last 24 hr 03/18/24 08:00: WBC 9.1, RBC 3.78 L, Hgb 10.5 L, Hct 31.0 L, MCV 82.0, MCH 27.8, MCHC 33.9, RDW Std Deviation 40.9, RDW Coeff of Lorna 14.0, Plt Count 114 L, MPV 12.8 H, Immature Gran % (Auto) 0.800, Neut % (Auto) 73.8 H, Lymph % (Auto) 16.5 L, [place] % (Auto) 7.9, Eos % (Auto) 0.8, Baso % (Auto) 0.2, Absolute Neuts (auto) 6.7, Absolute Lymphs (auto) 1.51, Nucleated RBC % 0, Syphilis Total Ab Non- reactive, Blood Type A NEGATIVE, Antibody Screen NEGATIVE 03/18/24 08:14: POC Glucose 93 03/18/24 09:21: POC Glucose 93 03/18/24 11:39: Plt Count 113 L, PT 13.1, INR 1.0, APTT 26.7, Creatinine 0.48 L, Est GFR (MDRD) Af Amer 204, Est GFR (MDRD) Non-Af 168, Uric Acid 4.0, AST 18, A LT 11 L, U Random Total Protein 10.2, Urine Creatinine 54.00, Protein/Creatinin Ratio 189 03/18/24 13:16: POC Glucose 92 03/18/24 14:15: POC Glucose 91 03/18/24 15:14: POC Glucose 87 03/18/24 16:19: POC Glucose 77 03/18/24 17:12: POC Glucose 71 L 03/18/24 18:26: POC Glucose 80 03/18/24 19:25: POC Glucose 78 03/18/24 20:28: POC Glucose 72 L 03/18/24 21:57: POC Glucose 80 03/19/24 00:00: WBC 21.1 H, RBC 3.67 L, Hgb 9.9 L, Hct 30.8 L, MCV 83.9, MCH 27.0, MCHC 32.1 D, RDW Std Deviation 42.8, RDW Coeff of Lorna 14.1, Plt Count 145 L, MPV 12.8 H 03/19/24 00:10: POC Glucose 88 03/19/24 05:30: WBC 16.4 H, RBC 2.96 L, Hgb 7.9 L, Hct 24.2 L, MCV 81.8, MCH 26.7 L, MCHC 32.6, RDW Std Deviation 41.0, RDW Coeff of Olrna 14.0, Plt Count 112 L, MPV 12.5 H, Immature Gran % (Auto) 0.500, Neut % (Auto) 85.5 H, Lymph % (Auto) 6.7 L, [place] % (Auto) 7.2, Eos % (Auto) 0.0, Baso % (Auto) 0.1, Absolute Neuts (auto) 14.0 H, Absolute Lymphs (auto) 1.09, Nucleated RBC % 0 ROS Constitutional Constitutional: Denies chills, fatigue, fever(s), poor appetite or weakness Eyes Eyes: Denies blurry vision, change in vision, seeing flashes or spots in vision ENT HEENT: Denies dizziness, headache(s), loss taste/smell or sore throat Cardiovascular Cardiovascular: Denies chest pain, dizziness, dyspnea, irregular heart rhythm, palpitations or rapid heart rate Respiratory/Chest Respiratory/Chest: Denies chest tightness, cough, dyspnea or breast pain Gastrointestinal Gastrointestinal: Denies abdominal pain, constipation or vomiting Genitourinary Genitourinary: Denies dysuria or flank pain Musculoskeletal Musculoskeletal: Denies difficulty walking, joint pain, limited range of motion or numbness Neurologic Neurologic: Denies abnormal movements, abnormal speech, dizziness, numbness, seizure-like activity or syncope Psychiatric Psychiatric: Denies anxiety, behavioral changes, change in appetite, confusion, depression or suicidal thoughts Physical Exam Const alert, oriented x3 and no apparent distress General Appearance: cooperative and comfortable Resp normal respiratory effort Cardio regular rate GI normal to inspection, nondistended, normoactive bowel sounds GI Narrative: uterus is firm below umbilicus Palpation: soft Narrative: Perineum is intact with moderate edema of the left labia. No hematoma is appreciated. Scant trickle of blood seen when she shifted her hips that was dark red. Back/Spine no CVA tenderness and thoraco-lumbar ROM normal Extremity normal to inspection, no clubbing, cyanosis or edema, no calf tenderness and no pedal edema Psych mental status grossly normal, thought process normal, cooperative, affect normal, speech normal, activity/motor behavior normal, denies homicidal ideation and denies suicidal ideation Assessment & Plan (1) Acute blood loss anemia: (2) Gestational diabetes mellitus (GDM) affecting , antepartum: COMMENT: start testing 4 times daily, nutrition consult sent. 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 testing starting 32 weeks, deliver by 37 weeks (4) Monochorionic diamniotic twin gestation: COMMENT: based on MFM assessment at [facility]. Sees MFM 01/11. Plan weekly BPPs at 32 weeks alternating WCH and MFM. Sees MFM at 32 weeks. (5) Rh negative status during : COMMENT: is 0- , no Rhogam needed (6) Anxiety: (7) Supervision of high-risk : COMMENT: , BRODIE 04/09/24, Frandy (8) : QUALIFIERS: Weeks of gestation: 36 weeks Qualified Code(s): Z 3A.36 - 36 weeks gestation of COMMENT: Neg GBS. discussed genetic & carrier testing, declines. (9) History of recurrent miscarriages: COMMENT: APL screening negative genetic carrier screening carrier negative if both negative is considering hsg to rule out uterine abnormalities. - patient considering. ordered progesterone would use progesterone with positive test. recommend waiting at least 3 months prior to conceiving. (10) Vacuum extractor delivery, delivered: PLAN: Plan plan to monitor vitals carefully today iron infusion ordered remove epidural catheter pain medication as needed
[2024-03-19] MEDS: Ibuprofen 600 MG Tablet PO ×2 (08:17→17:47)
--- NOTE | 2024-03-19 09:47 | NURSING ---
pt standing to side of bed. HR increased to 130-140, pulse ox 98%. Pt denies feeling dizzy or lightheaded. Pt assisted to the BR and tolerated well.
[2024-03-19] MEDS: oxyCODONE 5 MG Tablet PO ×2 (10:06→21:12)
[2024-03-19] MEDS: Sodium Ferric Gluconat/Sucrose 250 MG in 0.9% Normal Saline (250mL Bag) 250 ML 135 MG IV (10:06)
[2024-03-19] MEDS: 0.9% Saline Lock 10 ML Syringe IV (10:07)
[2024-03-19] MEDS: Senna/Docusate Sodium 1 Tablet PO (11:59)
[2024-03-19 12:21] LABS: Hematocrit 21.2 % (37-47); Hemoglobin 7.2 g/dL (12.0-15.0); Mean Corpuscular Hgb 27.6 pg (27.0-32.0); Mean Corpuscular Volume 81.2 fL (81-99); Mean Platelet Vol. 12.8 fl (6.2-12.0); POSITIVE COUNT YES; Platelet Count 93 K/mm3 (150-450); RBC Distribution Width CV 13.9 % (11.6-14.6); RBC Distribution Width SD 40.6 fl (35.1-43.9); Red Blood Count 2.61 M/mm3 (4.2-5.4); White Blood Count 14.9 K/mm3 (4.4-11.0)
[2024-03-19 12:22] LABS: Scan Indicated on CBC? Y/N YES- FLAGS NOTED
[2024-03-19 13:12] LABS: Differential Comment SCANNED
[2024-03-20] VITALS (24 sets, daily range): BP systolic 117–140; BP diastolic 70–87; PULSE 94–131; RESP 16–18; TEMP 36.1–37.2; O2SAT 97–100
--- NOTE | 2024-03-20 04:12 | PCM.PN.OB ---
Subjective Subjective patient doing better overnight, counts stable, no ruther signs of bleeding all WNL. pain controlled. no CP SOB NV Objective Data Objective Data Vital Signs: Vital Signs Temp Pulse Resp BP Pulse Ox O2 Del Method 97.1 F L 102 H 16 118/79 98 Room Air 03/20/24 02:10 03/20/24 02:10 03/20/24 02:10 03/20/24 02:10 03/20/24 02:10 03/20/24 02:10 Oxygen Delivery Method Room Air Weight: 180 lb Body Mass Index (BMI) 34.0 Intake & Output: Intake and Output for Last 24 Hours 03/18/24 03/19/24 03/20/24 23:59 23:59 23:59 Intake Total 3462.30 / 3462.30 1020 / 1020 Output Total 225 / 225 1300 / 1300 Balance 3237.30 / 3237.30 -280 / -280 Lab / Micro Data 03/20/24 05:00 03/18/24 11:39 Labs: Laboratory Results - last 24 hr 03/19/24 05:30: WBC 16.4 H, RBC 2.96 L, Hgb 7.9 L, Hct 24.2 L, MCV 81.8, MCH 26.7 L, MCHC 32.6, RDW Std Deviation 41.0, RDW Coeff of Lorna 14.0, Plt Count 112 L, MPV 12.5 H, Immature Gran % (Auto) 0.500, Neut % (Auto) 85.5 H, Lymph % (Auto) 6.7 L, [place] % (Auto) 7.2, Eos % (Auto) 0.0, Baso % (Auto) 0.1, Absolute Neuts (auto) 14.0 H, Absolute Lymphs (auto) 1.09, Nucleated RBC % 0 03/19/24 12:05: WBC 14.9 H, RBC 2.61 L, Hgb 7.2 L, Hct 21.2 L, MCV 81.2, MCH 27.6, MCHC 34.0, RDW Std Deviation 40.6, RDW Coeff of Lorna 13.9, Plt Count 93 L, MPV 12.8 H, Differential Comment SCANNED ROS Constitutional Constitutional: Reports systems reviewed and no addt'l complaints, except as documented Cardiovascular Cardiovascular: Reports systems reviewed and no addt'l complaints, except as documented Respiratory/Chest Respiratory/Chest: Reports systems reviewed and no addt'l complaints, except as documented Gastrointestinal Gastrointestinal: Reports systems reviewed and no addt'l complaints, except as documented Physical Exam Const alert, oriented x3 and no apparent distress HEENT Head and Scalp: atraumatic Resp normal respiratory effort GI soft to palpation and non-tender Bimanual Exam - Vag & Uterus: uterus non-tender Uterus Palpation: uterus fundus firm (below Umbilicus) Assessment & Plan (1) Vacuum extractor delivery, delivered: (2) Acute blood loss anemia: PLAN: Plan care- counts stable but borderline, will repeat again at noon, bleeding stable,
--- NOTE | 2024-03-20 04:53 | PCM.DC.SUM ---
Providers Date of Admission: 03/18/24 Primary Care Physician: YUDI Nath Reason For Visit: VAG Diagnosis Discharge Diagnosis (1) Vacuum extractor delivery, delivered: Status: Acute Code(s): O75.9 - Complication of labor and delivery, unspecified (2) Acute blood loss anemia: Status: Acute Code(s): D62 - Acute posthemorrhagic anemia Plan care- counts stable, bleeding stable, will dc home today. Medications at Discharge Home Medications docosahexaenoic acid 200 mg capsule (Algal Blue Ridge-3 DHA) 400 mg PO DAILY 08/22/23 ferrous sulfate 15 mg iron (75 mg)/mL oral drops (Ethan-In-Apoorva) 1 ml PO DAILY 08/22/23 magnesium hydroxide in mineral oil 6 %-25 % oral emulsion 60 ml PO DAILY 08/22/23 zinc glycinate 30 mg capsule 15 mg PO DAILY 08/22/23 blood sugar diagnostic (Blood Glucose Test strips) #50 ea 01/29/24 blood-glucose meter #1 ea 01/29/24 lancets #200 ea 01/29/24 vit no.133-ferrous fumarate 28 mg-folic acid 800 mcg tablet () 1 tab PO DAILY 03/18/24 Hospital Course Summary of Care Provided Hospital Course: patient underwent IOL for twins, delivered via vacuum x 2, had increased blood loss with delivery and had anemia and thrombocytopenia after that was followed for stability. stable for dc home on ppd 2 after unti of blood given due to positive orthostatics and anemia Weight / BMI Weight Weight: 180 lb Body Mass Index (BMI) 34.0 ABG / Lab / Microbiology Data 03/20/24 19:35 03/18/24 11:39 Laboratory: Laboratory Results - last 24 hr 03/19/24 05:30: WBC 16.4 H, RBC 2.96 L, Hgb 7.9 L, Hct 24.2 L, MCV 81.8, MCH 26.7 L, MCHC 32.6, RDW Std Deviation 41.0, RDW Coeff of Lorna 14.0, Plt Count 112 L, MPV 12.5 H, Immature Gran % (Auto) 0.500, Neut % (Auto) 85.5 H, Lymph % (Auto) 6.7 L, [place] % (Auto) 7.2, Eos % (Auto) 0.0, Baso % (Auto) 0.1, Absolute Neuts (auto) 14.0 H, Absolute Lymphs (auto) 1.09, Nucleated RBC % 0 03/19/24 12:05: WBC 14.9 H, RBC 2.61 L, Hgb 7.2 L, Hct 21.2 L, MCV 81.2, MCH 27.6, MCHC 34.0, RDW Std Deviation 40.6, RDW Coeff of Lorna 13.9, Plt Count 93 L, MPV 12.8 H, Differential Comment SCANNED D/C Instructions Discharge Diet: No restrictions May resume sexual activity in: 4-6 weeks Call your doctor if your incision/area has: Continuous Slow Oozing, Sudden Increased Bleeding, Increased Pain/ Swelling, Increased Redness and Foul Smelling Discharge DC O2, CPAP, BIPAP Needs Additional Home O2 Discharge instructions: No DC home with Oxygen: No Please Follow Up With: Dara Goodrich DO When: Call [phone] to make an appointment with your doctor in 6 weeks. If you had elevated blood pressure or 4th degree laceration, you will need to be seen in 2 weeks. Meaningful Use Info Meaningful Use Meaningful Use Diagnoses (Choose all that apply): None applicable Ischemic Stroke Statin Dosing Therapy Reference: STATIN DOSE THERAPY REFERENCE: * Patients > 75 years receive moderate or high dose statin therapy. * Patients 75 years or YOUNGER should receive HIGH intensity statin dose unless contraindicated. You will be required to document reason for non-treatment if statin daily dose does not meet guidelines. HIGH DOSE STATIN THERAPY DAILY Atorvastatin > than or = to 40 mg Rosuvastatin > than or = to 20 mg Amlodipine + Atorvastatin > than or = to 2.5/40 mg Ezetimibe + Simvastatin 10/80 mg Simvastatin 80mg Discharge Plan Admission Admit Date/Time: 03/18/24 07:13 Attending Provider: Dara Goodrich Primary Care Provider: Jessica Grossman Instructions Patient Instructions: After a Vaginal , Pain After Childbirth, Understanding Blues, Understanding Depression Discharge Orders/Prescriptions Prescriptions: No Action zinc glycinate 30 mg capsule 15 mg PO DAILY ferrous sulfate [Ethan-In-Apoorva] 15 mg iron (75 mg)/mL drops 1 ml PO DAILY Algal Blue Ridge-3 DHA 200 mg capsule 400 mg PO DAILY mag hydroxide in mineral oil 6-25 % emulsion 60 ml PO DAILY 28-800 mg-mcg tablet 1 tab PO DAILY (DME) Blood Glucose Test Strip See Rx Instructions .Route Qty: 50 8RF Rx Instructions: As directed, fasting and 2 hours post meals (DME) lancets Misc See Rx Instructions .Route Qty: 200 2RF Rx Instructions: As directed, fasting and 2 hours post meals (DME) blood-glucose meter Misc See Rx Instructions .Route Qty: 1 0RF Rx Instructions: As directed, fasting and 2 hours post meals. Referrals / Follow Up: Jessica Grossman, PA [Primary Care Provider] - Disposition Disposition (needs filled in before D/C Order can be placed): Home, Self Care
[2024-03-20 05:13] LABS: Absolute Lymphocyte Count 1.79 X10^3/uL (0.83-4.51); Absolute Neutrophil Count 8.9 X10^3/uL (2.0-7.7); Basophil# 0.03 X10^3/uL; Basophil% 0.3 % (0-1); Eosinophil# 0.11 X10^3/uL; Eosinophils% 0.9 % (0-5); Hematocrit 20.6 % (37-47); Lymphocyte # 1.79 X10^3/ul (0.83-4.51); Lymphocyte % 15.2 % (19-41); Mean Corpuscular Hgb 27.9 pg (27.0-32.0); Mean Corpuscular Volume 82.1 fL (81-99); Monocyte# 0.85 X10^3/uL; Monocyte% 7.2 % (0-10); NRBC Flagged by Analyzer 0 % (0-5); Neutrophil # 8.86 X10^3/uL (2.7-7.7); Neutrophil % 75.5 % (47-70); Platelet Count 100 K/mm3 (150-450); RBC Distribution Width CV 14.6 % (11.6-14.6); RBC Distribution Width SD 42.6 fl (35.1-43.9); Red Blood Count 2.51 M/mm3 (4.2-5.4); White Blood Count 11.7 K/mm3 (4.4-11.0)
[2024-03-20 05:24] LABS: Bedside Glucose 84 mg/dL (74-106)
[2024-03-20 11:56] LABS: Absolute Lymphocyte Count 1.57 X10^3/uL (0.83-4.51); Absolute Neutrophil Count 11.2 X10^3/uL (2.0-7.7); Basophil# 0.02 X10^3/uL; Basophil% 0.1 % (0-1); Eosinophil# 0.08 X10^3/uL; Eosinophils% 0.6 % (0-5); Hematocrit 20.5 % (37-47); Lymphocyte # 1.57 X10^3/ul (0.83-4.51); Lymphocyte % 11.3 % (19-41); Mean Corp Hgb Conc 34.1 g/dL (32-36); Mean Corpuscular Hgb 28.2 pg (27.0-32.0); Mean Corpuscular Volume 82.7 fL (81-99); Mean Platelet Vol. 11.7 fl (6.2-12.0); Monocyte# 0.78 X10^3/uL; Monocyte% 5.6 % (0-10); NRBC Flagged by Analyzer 0 % (0-5); Neutrophil # 11.24 X10^3/uL (2.7-7.7); Neutrophil % 81.2 % (47-70); Platelet Count 117 K/mm3 (150-450); RBC Distribution Width CV 14.6 % (11.6-14.6); RBC Distribution Width SD 42.6 fl (35.1-43.9); Red Blood Count 2.48 M/mm3 (4.2-5.4); White Blood Count 13.9 K/mm3 (4.4-11.0)
[2024-03-20] MEDS: Acetaminophen 500 MG Tablet 1000 MG PO (16:10)
[2024-03-20] MEDS: DiphenhydrAMINE 50 MG/ML Syringe IV (16:11)
[2024-03-20] MEDS: 0.9% Saline Lock 10 ML Syringe IV (16:19)
[2024-03-20 19:45] LABS: Absolute Lymphocyte Count 1.98 X10^3/uL (0.83-4.51); Basophil# 0.04 X10^3/uL; Basophil% 0.3 % (0-1); Eosinophil# 0.17 X10^3/uL; Eosinophils% 1.3 % (0-5); Hematocrit 22.8 % (37-47); Hemoglobin 7.5 g/dL (12.0-15.0); Lymphocyte # 1.98 X10^3/ul (0.83-4.51); Lymphocyte % 15.1 % (19-41); Mean Corp Hgb Conc 32.9 g/dL (32-36); Mean Corpuscular Hgb 27.8 pg (27.0-32.0); Mean Corpuscular Volume 84.4 fL (81-99); Monocyte# 0.74 X10^3/uL; Monocyte% 5.6 % (0-10); NRBC Flagged by Analyzer 0 % (0-5); Neutrophil # 9.98 X10^3/uL (2.7-7.7); Platelet Count 121 K/mm3 (150-450); RBC Distribution Width CV 15.1 % (11.6-14.6); RBC Distribution Width SD 45.1 fl (35.1-43.9); White Blood Count 13.1 K/mm3 (4.4-11.0)
--- NOTE | 2024-03-22 10:38 | CASEMGMT ---
Social Work Assessment Labor and Delivery Unit Patient Address: [address] [place] [address] [address], [place] [address] Phone number: [phone] Date of Referral: 03/19/24 Time of Referral:? 1951 Referred By: Dr. Goodrich Date of Intervention: ?03/19/24? Time of Intervention:? 1320 Reason for Referral:? mental health Sw completed chart review and acknowledges need for sw assessment to be completed due to maternal mental health history. Sw presented to bedside and introduced self to mother of baby (REANNA- Carlyn), and father of baby (DIAMOND- Frandy). Also present was maternal grandma. MOB stated it was okay to complete assessment with grandmother present. Sw completed assessment and provided resources and support for parents. History obtained from: medical records, MOB and FOB ? Household composition: Currently residing in the home is MOB, KIESHAB and twins when ready for discharge. Parents deny any issues or concerns with housing, stating that it is safe and secure. Patient's parent/guardian status:?Parents state that they met through mutual family members. REANNA states that her sister is to DIAMOND's brother. REANNA and DIAMOND have been together for 4 years. No concerns reported of domestic violence or intimate partner violence. [place] twins are first children for both parents. ? Medical History: ?REANNA is 24 year old female who is 3, para 0- now 2 following labor and delivery of twin boys. REANNA received routine care during with [facility]. REANNA presented to hospital for scheduled induction of labor. REANNA delivered twin via vaginal delivery on 03/18/24 at 36 weeks gestation. Twin A: Tirso Pierce was born weighing 6lb with apgars of 8 and 9 at one and five minutes of life, respectfully. Twin B: Balta Renteria, was born weighing 5lb 12oz with apgars of 8 and9 at one and five minutes of life, respectfully. REANNA is breast feeding and states that it is going well. [place] baby's will be followed by Dr. Dial for pediatrics. Educational Status:? Both parents completed the 8th grade as is customary for [facility] culture/ education. Parents deny issues or concerns with reading, writing or comprehension. Financial Status: DIAMOND is gainfully employed outside of the home working in construction. FOB states that he is able to take a couple of days off of work, but will be returning Friday of next week. REANNA is unemployed and will be a stay at home mom. Infant Supplies: Parents report that they have obtained: clothes, diapers, wipes and two car seats. Parents state that they only have one sleep space where they intended on the twins sleeping together. Sw informed parents that to prevent the risk of SIDS it is recommended that each baby has his own separate sleep space. Sw asked parents if they are able to obtain another safe sleep space such as: bassinet, crib or pack-n-play for when the baby's are discharged to home. REANNA states that she does have something that she is able to lay on a flat surface that will protect the baby from falling. Sw stated that although that may be safe for naps, parents should obtain an identified sleep space. Sw also expressed the importance of not sleeping with baby's in bed, on the couch or in a reclining chair, as REANNA also stated she may sleep with baby in the living room. Parents express understanding and stated that they would work on getting another sleep space to have at home. Childcare/Caregiver(s):?MOB will be the primary caregiver to baby's along with maternal grandma and DIAMOND when he is not working. Transportation:?? Parents do not drive, they use a horse and buggy for primary means of transportation. For doctors appointments parents use a intermodal owner operator truck driver that they hire to get them where they need to go. Programs/Agencies Involved: Parents are not connected to any community agencies that assist them financially. ??? Children Services/Legal Issues:??No history of children services involvement. No issues or concerns warranting referral to be made at this time. ? Behavioral Health Issues: ??Mental Health History: Parents deny mental health history. Although anxiety is listed in REANNA's chart, MOB denies having history of anxiety or depression. ??? Substance Use History:?Parents deny substance use prior to and during . ? Family History: Parents deny family history of addiction/ substance use or significant mental health diagnoses. ? Drug Screens: No drug screens observed in chart review. Family/Social Stressors:? Parents deny any issues, concerns or stressors at this time. Support Systems: REANNA identifies that DIAMOND, her mom and her sisters are her biggest supports. Depression/Shaken Baby/Safe Sleeping: Sw educated parents on signs and symptoms of baby blue and mood and anxiety disorders to be mindful of during this period. MOB seemed to be knowledgeable about what to potentially expect during this time. MOB states that if she were to struggle with her mental health, she would talk to FOB and her mom. FOB states that if MOB were to struggle he would be able to recognize that and would know how to help and support her. Sw educated parents on shaken baby prevention and again emphasized the importance of safe sleep. Parents express understanding. ASSESSMENT:? MOB and her twins are admitted following labor and delivery, anticipating discharge today. MOB and FOB were attentive and participated throughout completion of psychosocial assessment. FOB and maternal grandma observed to hold baby's and care for them lovingly and appropriately. Parents report to having all necessary baby items except for a separate sleep space for each baby. Parents report to having one bassinet that they intended to use for both baby's. Parents express understanding of importance for both baby to have their own separate sleep space, and intention of obtaining a second space when discharged from hospital. MOB with history of anxiety, however she denies this when meeting with sw. MOB expresses understanding of mental health concerns to be mindful of during this period. PLAN:?? No other services requested or indicated. MOB and baby to be discharged when medically ready. Parents were provided literature regarding: signs and symptoms of baby blues and mood and anxiety disorders, Help Me Grow, shaken baby prevention, ABCs of safe sleep and a list of county resources that are available for them should any needs present themselves. Sharon Elmore, SPRINKLER FITTER, SUSTAINABILITY CONSULTANT
== END 2024-03-20 21:50 | disposition home or self-care (01) | DRG 806 ==
PROVIDERS: Obstetrics & Gynecology; Admitting Provider Obstetrics & Gynecology; PCP Physician Assistant; Referring Provider Obstetrics & Gynecology; Visit Provider Obstetrics & Gynecology
DX: O30.033 Twin pregnancy, monochorionic/diamniotic, third trimester (principal); Z37.2 Twins, both liveborn; D62 Acute posthemorrhagic anemia; O24.420 Gestational diabetes mellitus in childbirth, diet controlled; O35.8XX0 Maternal care for other (suspected) fetal abnormality and damage, not applicable or unspecified; O26.23 Pregnancy care for patient with recurrent pregnancy loss, third trimester; O72.3 Postpartum coagulation defects; O90.81 Anemia of the puerperium; O76 Abnormality in fetal heart rate and rhythm complicating labor and delivery; O70.1 Second degree perineal laceration during delivery; O32.4XX1 Maternal care for high head at term, fetus 1; O32.4XX2 Maternal care for high head at term, fetus 2; O26.893 Other specified pregnancy related conditions, third trimester; Z67.11 Type A blood, Rh negative; Z3A.36 36 weeks gestation of pregnancy
CPT/HCPCS: 59025; 59050; 76815; 82565; 82570; 82962; 84156; 84450; 84460; 84550; 85025; 85027; 85049; 85610; 85730; 86780; 86850; 86900; 86901; 86920; 88307; 99221; J7050; J7120; P9016; A4216; G0378; J2405; J2916